=== PATIENT | female | born 1990 | race Caucasian/White ===

== ENCOUNTER 2019-09-16 10:04 | Outpatient (CLI) | payer BC, SELFPAY ==
[2019-09-16 11:10] VITALS: BP 99/77; PULSE 88
--- NOTE | 2019-09-16 11:26 | PM.OBTRLD ---
OB - Triage/Final Diagnosis Visit Information Date of evaluation: 09/16/19 Reason for evaluation: threatened labor Evaluation Vital signs: Vital Signs - 24 hr 09/16/19 11:10 Pulse Rate 88 Blood Pressure [Left Arm] 99/77 L
== END 2019-09-16 11:17 | disposition home or self-care (01) ==
LOC: ANHOBOP 10:57 → ANHLDR 10:58
PROVIDERS: Visit Provider Obstetrics & Gynecology
DX: O20.0 Threatened abortion (principal); Z3A.00 Weeks of gestation of pregnancy not specified
CPT/HCPCS: 59025; 99199

== ENCOUNTER 2019-09-27 05:00 | Inpatient (IN) | payer BC, SELFPAY ==
[2019-09-27] VITALS (80 sets, daily range): BP systolic 87–133; BP diastolic 43–94; PULSE 66–111; RESP 18; TEMP 36.6–37.9; O2SAT 97–100; BMI 22.7
--- NOTE | 2019-09-27 06:15 | LDADM ---
This patient, Debbie Chakraborty, was admitted to Labor/Delivery/Recovery 105 on 09/27/19 at 05:00. Plans for labor, pain management and were discussed with patient. Patient/family oriented to hospital policies and general routines including ID bracelet, bed and alarms, visiting hours, pain management, procedures, bathroom and other care routines, personal items, smoking policy, room service/diet and guest tray routines, infant security routines, and visiting hours. Patient/Family are encouraged to report perceived risks to care and to ask questions if they do not understand what they are told or what they should do. See OBIX for further documentation.
[2019-09-27 06:28] LABS: Basophils Percent Auto 0.2 % (0.2-1.2); Eosinophils Absolute Auto 0.1 K/mm3 (0-0.3); Eosinophils Percent Auto 0.8 % (0-4.4); Hematocrit 36.2 % (37.0-47.0); Hemoglobin 11.8 g/dL (12.0-15.0); Immature Granulocyte Absolute 0.06 K/mm3 (0.00-0.031); Immature Granulocyte Percent A 0.6 % (0-0.5); Immature Platelet Fraction Pct 19.9 % (0.9-11.2); Lymphocytes Absolute Auto 1.14 K/mm3 (0.9-3.2); Lymphocytes Percent Auto 10.7 % (18.3-44.2); Mean Corpuscular HGB Conc 32.6 g/dl (32-36); Mean Corpuscular Hemoglobin 29.9 pg (26-34); Mean Corpuscular Volume 91.9 fl (80-100); Mean Platelet Volume 14.1 fl (7.4-10.4); Monocytes Absolute Auto 0.7 K/mm3 (0.1-0.6); Neutrophils Absolute Auto 8.6 K/mm3 (1.3-6.7); Neutrophils Percent Auto 80.7 % (45.5-73.1); Platelet Count Result 100 k/mm3 (150-375); Red Blood Count 3.94 M/mm3 (4.2-5.4); White Blood Count 10.6 K/mm3 (4.5-10.0)
--- NOTE | 2019-09-27 06:59 | P.HP_ITS ---
H&P: HPI History of Present Illness Chief complaint: iol Narrative: Debbie Chakraborty is a 29 year old female 3 para 1011 last menstrual period was 01/01/2019, EDC is 09/28/2019, presents at 38 weeks gestation for induction. She has elevated blood pressures. PIH labs were drawn. Review of Systems Review of Systems: All systems reviewed & are unremarkable except as noted in HPI and below PMFSH Family History Family History Father High cholesterol Mother H/O thyroidectomy MTHFR mutation Social History Social History Smoking status: Never smoker Substance use: never Spiritual care concerns: No Meds Home Medications and Allergies Home Medications Medication Instructions Recorded Confirmed Type PNV cmb#95-ferrous fumarate-FA 1 tablet PO DAILY 09/05/19 09/05/19 History [] lisdexamfetamine [Vyvanse] 60 mg PO QAM 09/05/19 09/05/19 History Allergies Allergy/AdvReac Type Severity Reaction Status Date / Time No Known Allergies Allergy Verified 09/05/19 12:38 Vital Signs Vital Signs - 24 hr 09/27/19 05:08 09/27/19 06:02 09/27/19 06:16 Pulse Rate 75 74 75 Blood Pressure 128/68 123/83 09/27/19 06:31 Pulse Rate 71 Blood Pressure 129/78 Exam Const: General: no acute distress Eyes: General: appearance normal, both eyes and all related structures Neck: Neck: supple and no JVD Thyroid: thyroid normal Resp: Effort & Inspection: normal respiratory effort Auscultation: clear to auscultation bilaterally Cardio: Rate: regular rate Rhythm: regular rhythm GI: Inspection: non-distended GI Palp: Yes Soft to palpation, No Tenderness to palpation present (GI) and No Guarding due to palpation present (GI) Auscultation: normal bowel sounds : General: Yes bladder normal to palpation External Female Exam: normal external appearance Speculum Exam - Vagina: normal vaginal discharge and No vaginal bleeding Speculum Exam - Cervix: nontender Bimanual exam- vagina & uterus: bladder normal to palpation and No Cervical tenderness present OB/external & speculum: No vaginal bleeding Skin: General skin exam: no rashes or lesions noted Extrem: General: normal to inspection and no edema Psych: Mental Status: mental status grossly normal Affect: normal affect H&P: Results Labs Labs: Short CBC 09/27/19 Range/Units 05:57 WBC 10.6 H (4.5-10.0) K/mm3 Hgb 11.8 L (12.0-15.0) g/dL Hct 36.2 L (37.0-47.0) % Plt Count 100 L (150-375) k/mm3 Assessment and Plan Additional Plan Impression: 39 and half week with elevated blood pressures Plan: Bilateral induction of labor, spontaneous vaginal delivery is expected, P IH labs were drawn
[2019-09-27] MEDS: LACTATED RINGERS 1,000 ML 125 ML IV CONT ×2 (07:00→09:05)
--- NOTE | 2019-09-27 08:55 | P.PNAN_ITS ---
Anes - Eval Pre Procedure Procedure: labor Epidural Date/Time: 09/27/19 09:32 Surgeon: Tato Preop Diagnosis: labor pain Pre Op Diagnosis: iol Patient Data Age: 29 Gender: F Height: 6 ft Weight: 76 kg Last Vital Signs Temp 36.6 C 09/27/19 08:57 Pulse 83 09/27/19 09:31 BP 87/73 L 09/27/19 09:31 Pulse Ox 100 09/27/19 09:31 Allergies Allergy/AdvReac Type Severity Reaction Status Date / Time No Known Allergies Allergy Verified 09/05/19 12:38 Home Medications Medication Instructions Recorded Confirmed Type PNV cmb#95-ferrous fumarate-FA 1 tablet PO DAILY 09/05/19 09/05/19 History [] lisdexamfetamine [Vyvanse] 60 mg PO QAM 09/05/19 09/05/19 History hydrocodone-acetaminophen [[place]] 1 tablet PO Q4H PRN #20 tablet 09/27/19 Rx Laboratory Tests 09/27/19 09/27/19 09/27/19 05:57 05:57 05:57 WBC 10.6 K/mm3 H K/mm3 (4.5-10.0) RBC 3.94 M/mm3 L M/mm3 (4.2-5.4) Hgb 11.8 g/dL L g/dL (12.0-15.0) Hct 36.2 % L % (37.0-47.0) MCV 91.9 fl fl (80-100) MCH 29.9 pg pg (26-34) MCHC 32.6 g/dl g/dl (32-36) RDW 13.0 % % (11.5-14.5) Plt Count 100 k/mm3 L k/mm3 (150-375) MPV 14.1 fl H fl (7.4-10.4) Immature Gran % (Auto) 0.6 % H % (0-0.5) Neut % (Auto) 80.7 % H % (45.5-73.1) Lymph % (Auto) 10.7 % L % (18.3-44.2) [place] % (Auto) 7.0 % % (2.6-8.5) Eos % (Auto) 0.8 % % (0-4.4) Baso % (Auto) 0.2 % % (0.2-1.2) Lymph # (Auto) 1.14 K/mm3 K/mm3 (0.9-3.2) [place] # (Auto) 0.7 K/mm3 H K/mm3 (0.1-0.6) Eos # (Auto) 0.1 K/mm3 K/mm3 (0-0.3) Baso # (Auto) 0.0 K/mm3 K/mm3 (0.0-0.1) Abs Immat Gran (auto) 0.06 K/mm3 H K/mm3 (0.00-0.031) Absolute Neuts (auto) 8.6 K/mm3 H K/mm3 (1.3-6.7) Absolute Nucleated RBC 0.0 K/mm3 K/mm3 (0.0-0.012) Nucleated RBC % 0.0 % % (0.0-0.2) % Immature Plt Fraction 19.9 % H % (0.9-11.2) RPR Pending Blood Type A Positive Antibody Screen Negative : gestational age (SERA 09/28/19) Patient hx anesthesia problems: none Family hx anesthesia problems: none [facility] Family History Family History Father High cholesterol Mother H/O thyroidectomy MTHFR mutation Social History Social History Smoking status: Never smoker Substance use: never Spiritual care concerns: No Exam Day of Procedure 09/27/19 09:32 Patient weight: normal Heart: regular rate and rhythm Lungs: clear to auscultation Airway: Mallampati scale class II Neurological: alert and orien
[2019-09-27 10:29] LABS: Rapid Plasma Reagin Non-Reactive (NonReactive)
--- NOTE | 2019-09-27 12:15 | PM.OBPRVD ---
OB - Delivery Note Procedure Delivery date: 09/27/19 Procedure: mil/ Intrapartal events: None Induction method: AROM Delivery augmentation: pitocin Delivery monitor: external FHT Route of delivery: Episiotomy description: None Laceration description: None Specimen: No Estimated blood loss (mL): 127 Disposition: floor Baby Date of : 09/27/19 Time of : 12:04 Weeks of gestation at delivery: 39 gender: Male Weight (pounds): 8 Weight (ounces): 5 presentation: vertex position: Left Occiput Transverse Placenta delivery description: Spontaneous cord vessel description: 3 Vessels and Clamped/Cut score one minute: 8 score five minutes: 9
[2019-09-27] MEDS: IBUPROFEN 600 MG TABLET PO ×2 (14:00→20:57)
--- NOTE | 2019-09-27 14:30 | PC.NURSE ---
Patient transferred to post room #277 per wheelchair from labor and delivery. Support person present. Oriented to unit, room, information board, rooming in, admission packet and security measures. Patient verbalizes understanding.
[2019-09-27] MEDS: LORATADINE 10 MG TABLET PO (15:39)
[2019-09-27] MEDS: DOCUSATE SODIUM 100 MG CAPSULE PO ×2 (15:39→18:52)
--- NOTE | 2019-09-27 16:15 | PC.NURSE ---
Consulted with patient, upon entering mother is attempting infant to breast. Mother reports attempting with first child, switching to bottle feeding within a few days. Reviewed infant feeding cues, frequencies, duration of feedings, feeding elimination flow sheet, and signs of adequate intake. Demonstrated stimulation techniques to wake for feeding. Assisted with infant to breast. Reviewed positioning/alignment in cross cradle, holding breast in U hold and guided asymmetrical latch on. Infant was able to latch correctly. nursed eagerly, with steady draws and frequent swallowing noted. Reviewed signs of a correct latch, effective nursing and suck swallow ratio. was able to maintain latch without discomfort to mother. Nipple care reviewed. Infant would draw back and slip to shallow latch while feeding. Demonstrated how to adjust latch more deeply while feeding. Advised to stimulate to keep infant nursing effectively for increased milk transfer. Instructed mother to call out for RN assistance if she is unable to latch for feeding or she has discomfort with nursing. Instructed feeding should be initiated three hours from start of last feeding or if feeding cues are noted before. Mother voiced understanding of information shared.
[2019-09-27] MEDS: WITCH HAZEL 40 PADS 1 PAD TOPICAL (18:52)
[2019-09-27] MEDS: BENZOCAINE 20% AER SPR (*SP) 56 GM CAN 1 SPRAY TOPICAL (18:52)
[2019-09-27] MEDS: ACETAMINOPHEN 325 MG TABLET 650 MG PO (18:53)
[2019-09-28 02:30] VITALS: TEMP 37.4
[2019-09-28] MEDS: ACETAMINOPHEN 325 MG TABLET 650 MG PO ×5 (02:31→21:16)
[2019-09-28 05:36] LABS: Hematocrit 34.4 % (37.0-47.0); Hemoglobin 11.1 g/dL (12.0-15.0)
--- NOTE | 2019-09-28 06:42 | P.PNOB_ITS ---
OB - PN: Subj Subjective Date/time seen: 09/28/19 06:42 Patient comments: no complaints and pain well controlled baby status: doing well and nursing well OB - PN: Obj Data Labs CBC & Chem 7: 09/28/19 04:36 Labs: Laboratory Results - last 24 hr 09/27/19 09/27/19 09/28/19 05:57 05:57 04:36 Hgb 11.1 L Hct 34.4 L RPR Non-reactive Blood Type A Positive Antibody Screen Negative OB - PN A/P Plan day: 1 Plan: routine care Comments: circ son today Time Spent With Patient Time: Total time spent is greater than 50% in coordination of care (as documented) at patient's floor/unit and/or counseling patient: Time with patient: less than 15 minutes Review of Systems Review of Systems: All systems reviewed & are unremarkable except as noted in HPI and below Exam Const: General: no acute distress Eyes: General: appearance normal, both eyes and all related structures Neck: Neck: supple and no JVD Thyroid: thyroid normal Resp: Effort & Inspection: normal respiratory effort Auscultation: clear to auscultation bilaterally Cardio: Rate: regular rate Rhythm: regular rhythm GI: Inspection: non-distended GI Palp: Yes Soft to palpation, No Tenderness to palpation present (GI) and No Guarding due to palpation present (GI) Auscultation: normal bowel sounds : General: Yes bladder normal to palpation External Female Exam: normal e xternal appearance Speculum Exam - Vagina: normal vaginal discharge and No vaginal bleeding Speculum Exam - Cervix: nontender Bimanual exam- vagina & uterus: bladder normal to palpation and No Cervical tenderness present OB/external & speculum: No vaginal bleeding Skin: General skin exam: no rashes or lesions noted Extrem: General: normal to inspection and no edema Psych: Mental Status: mental status grossly normal Affect: normal affect
--- NOTE | 2019-09-28 07:00 | PC.NURSE ---
PT introductions made and plan of care discussed per post , pain management, breast feeding, daily care activities. PT verbalized understanding of such care.
[2019-09-28 07:50] VITALS: BP 118/71; PULSE 92; RESP 18; TEMP 37.3; O2SAT 100
[2019-09-28] MEDS: DOCUSATE SODIUM 100 MG CAPSULE PO ×2 (08:01→15:54)
[2019-09-28] MEDS: MULTIVIT/MIN/PREN/FOL AC/IRON TABLET 1 TAB PO (08:02)
[2019-09-28] MEDS: IBUPROFEN 600 MG TABLET PO ×3 (08:02→21:20)
--- NOTE | 2019-09-28 08:08 | WPDANLDPN2 ---
Anes-Prog Note L&D Date/Time: 09/28/19 08:08 Comfortable throughout: labor and delivery Neuraxial method: epidural Epidural/Spinal procedure site: clean & non-tender Neuro status: Neuro function grossly intact. Cardiovascular status: normal Respiratory status: normal Airway patency: baseline Mental status: baseline Post-Op hydration status: normal Vital Signs: Last Vital Signs Temp 99.4 F 09/28/19 02:30 Pulse 100 09/27/19 18:55 Resp 18 09/27/19 18:55 BP 111/57 L 09/27/19 18:55 Pulse Ox 100 09/27/19 14:40 Patient feedback: Patient satisfied with anesthetic care.
[2019-09-28 09:26] VITALS: BP 112/67; PULSE 78; RESP 18; TEMP 36.3; O2SAT 98
--- NOTE | 2019-09-28 11:28 | PC.NURSE ---
PT informed of positive influenza A swab and was informed and educated on Droplet precautions. Pt verbalized understanding.
[2019-09-28 11:57] LABS: Influenza Control Positive
--- NOTE | 2019-09-28 13:30 | PC.NURSE ---
PT requests to talk to Adelita modeling agent
--- NOTE | 2019-09-28 15:35 | PC.NURSE ---
Consult with pt., mother reports she is able to latch deeply without assistance. eagerly latches nursing with long draws and without discomfort. Mother has supplemented due to not acting satisfied after some feedings. Mother is also sleepy and feels she needs to rest well between feedings. Suggested pace feedings.
[2019-09-28] MEDS: GUAIFENESIN/DEXTROMETHORPHAN 10 ML UDC PO (15:58)
[2019-09-28 19:00] VITALS: BP 104/61; PULSE 88; RESP 16; TEMP 37.1; O2SAT 98
[2019-09-29 03:30] VITALS: TEMP 36.3
[2019-09-29] MEDS: IBUPROFEN 600 MG TABLET PO ×2 (03:30→10:20)
--- NOTE | 2019-09-29 06:50 | P.DS_ITS ---
DS: Diagnosis Admitting Diagnosis Admitting Diagnosis: term DS: Summary Time Spent with Patient Time attestation: Total time spent providing and/or coordinating discharge services: Exam Const: General: no acute distress Eyes: General: appearance normal, both eyes and all related structures Neck: Neck: supple and no JVD Thyroid: thyroid normal Resp: Effort & Inspection: normal respiratory effort Auscultation: clear to auscultation bilaterally Cardio: Rate: regular rate Rhythm: regular rhythm GI: Inspection: non-distended GI Palp: Yes Soft to palpation, No Tenderness to palpation present (GI) and No Guarding due to palpation present (GI) A uscultation: normal bowel sounds : General: Yes bladder normal to palpation External Female Exam: normal external appearance Speculum Exam - Vagina: normal vaginal discharge and No vaginal bleeding Speculum Exam - Cervix: nontender Bimanual exam- vagina & uterus: bladder normal to palpation and No Cervical tenderness present OB/external & speculum: No vaginal bleeding Skin: General skin exam: no rashes or lesions noted Extrem: General: normal to inspection and no edema Psych: Mental Status: mental status grossly normal Affect: normal affect DS: Data Data Completed and Pending Labs on day of discharge: Labs from last 24 hours 09/28/19 11:28 Influenza Types A,B Ag Positive for inf a Discharge Plan Discharge Attending physician on discharge: Matt Por Discharging Clinician: Matt Pro Patient Disposition: Home, Self-Care Activity: may shower, no straining, may drive after 2 weeks and pelvic rest Diet: heart healthy Wound Care Instructions: follow printed instructions Patient Instructions: Antibiotic Form Stand Alone Forms: General Discharge Information Follow-up/Referrals: Matt Pro MD [Physician] - Discharge Medications: New hydrocodone-acetaminophen [[place]] 5-325 mg tablet 1 tablet PO Q4H PRN (Reason: pain) Qty: 20 RF: 0 Continued PNV cmb#95-ferrous fumarate-FA [] 28 mg iron- 800 mcg Tablet 1 tablet PO DAILY RF: 0 Vyvanse 60 mg Capsule 60 mg PO QAM RF: 0 Date of admission: 09/27/19 05:00 Primary Care Provider: UNKNOWN,DOCTOR Admitting Provider: Matt Pro Attending physician on admission: Matt Pro
--- NOTE | 2019-09-29 06:51 | PM.OBPNVD ---
OB - PN: Subj Subjective Date/time seen: 09/29/19 06:51 Patient comments: no complaints and pain well controlled baby status: doing well and nursing well OB - PN: Obj Data Labs CBC & Chem 7: 09/28/19 04:36 Labs: Laboratory Results - last 24 hr 09/28/19 11:28 Influenza Types A,B Ag Positive for inf a OB - PN A/P Plan day: 2 Plan: routine care, discharge home and follow up 6 weeks Time Spent With Patient Time: Total time spent is greater than 50% in coordination of care (as documented) at patient's floor/unit and/or counseling patient: Time with patient: less than 15 minutes Review of Systems Review of Systems: All systems reviewed & are unremarkable except as noted in HPI and below Exam Const: General: no acute distress Eyes: General: appearance normal, both eyes and all related structures Neck: Neck: supple and no JVD Thyroid: thyroid normal Resp: Effort & Inspection: normal respiratory effort Auscultation: clear to auscultation bilaterally Cardio: Rate: regular rate Rhythm: regular rhythm GI: Inspection: non-distended GI Palp: Yes Soft to palpation, No Tenderness to palpation present (GI) and No Guarding due to palpation present (GI) Auscultation: normal bowel sounds : General: Yes bladder normal to palpation External Female Exam: normal external appearance Speculum Exam - Vagina: normal vaginal discharge and No vaginal bleeding Speculum Exam - Cervix: nontender Bimanual exam- vagina & uterus: bladder normal to palpation and No Cervical tenderness present OB/external & speculum: No vaginal bleeding Skin: General skin exam: no rashes or lesions noted Extrem: General: normal to inspection and no edema Psych: Mental Status: mental status grossly normal Affect: normal affect
--- NOTE | 2019-09-29 08:26 | PC.NURSE ---
PT introductions made and plan of care discussed per post , pain management, breast feeding, daily care activities, positive for influenza A, droplet isolation, pending discharge to home. PT verbalized understanding of such care.
[2019-09-29] MEDS: ACETAMINOPHEN 325 MG TABLET 650 MG PO ×2 (08:29→13:00)
[2019-09-29] MEDS: MULTIVIT/MIN/PREN/FOL AC/IRON TABLET 1 TAB PO (08:29)
[2019-09-29] MEDS: DOCUSATE SODIUM 100 MG CAPSULE PO (08:30)
[2019-09-29 09:49] VITALS: BP 112/67; PULSE 78; RESP 18; TEMP 36.3; O2SAT 98
--- NOTE | 2019-09-29 12:15 | PC.NURSE ---
Mother is able to independently latch infant with appropriate positioning/alignment. She denies any nipple discomfort, is feeding as required and waking to feed if needed. has had several effective feedings in the past 24 hours, and is currently meeting outcomes for weight, output, jaundice and feeding frequencies. Mother chooses to supplement at times. Mother states she feels confident to continue effective at home. Reviewed transition to breast milk, signs of adequate intake, and engorgement/relief. Instructed to call ICP if intake/output less than required. Reviewed regular medications mother is taking. Information provided per Vickie. Reviewed community resources on the [facility] website and in the Mom/Baby guide. Information on outpatient services provided. Mother has no further questions at this time.
--- NOTE | 2019-09-29 13:00 | PC.NURSE ---
PT received discharge instructions per protocol and verbalized understanding of such care.
--- NOTE | 2019-09-29 13:30 | PC.NURSE ---
PT discharged to home ambulatory accompanied by spouse and to waiting car. Follow up appts confirmed
--- NOTE | 2019-10-17 12:29 | PM.IMHP ---
H&P: HPI History of Present Illness Chief complaint: iol Narrative: Debbie Chakraborty is a 29 year old female Who had a spontaneous vaginal delivery on 09/27/2019, presents for suction dilatation curettage secondary to retained products. She is seen on the and ultrasound showed retained products. She continues to bleed. Risks and benefits of D and C reviewed Review of Systems Review of Systems: All systems reviewed & are unremarkable except as noted in HPI and below PMFSH Past Medical History Medical History Normal vaginal delivery Surgical History Surgical History No pertinent past surgical history Family History Family History Father High cholesterol Mother H/O thyroidectomy MTHFR mutation Social History Social History Smoking status: Never smoker Substance use: never Spiritual care concerns: No Meds Home Medications and Allergies Home Medications Medication Instructions Recorded Confirmed Type PNV cmb#95-ferrous fumarate-FA 1 tablet PO DAILY 09/05/19 09/05/19 History [] Vyvanse 60 mg PO QAM 09/05/19 09/05/19 History hydrocodone-acetaminophen [[place]] 1 tablet PO Q4H PRN #20 tablet 09/27/19 Rx Allergies Allergy/AdvReac Type Severity Reaction Status Date / Time No Known Allergies Allergy Verified 10/17/19 10:42 Exam Const: General: no acute distress Eyes: General: appearance normal, both eyes and all related structures Neck: Neck: supple and no JVD Thyroid: thyroid normal Resp: Effort & Inspection: normal respiratory effort Auscultation: clear to auscultation bilaterally Cardio: Rate: regular rate Rhythm: regular rhythm GI: Inspection: non-distended GI Palp: Yes Soft to palpation, No Tenderness to palpation present (GI) and No Guarding due to palpation present (GI) Auscultation: normal bowel sounds : General: Yes other (Cervix open. Blood seen from the cervix. Uterus is state) Skin: General skin exam: no rashes or lesions noted Extrem: General: normal to inspection and no edema Psych: Mental Status: mental status grossly normal Affect: normal affect Assessment and Plan Additional Plan Impression: bleeding Plan: Suction dilatation curettage
== END 2019-09-29 13:30 | disposition home or self-care (01) | DRG 807 ==
LOC: ANHLDR 07:03 → ANHOB2 14:45
PROVIDERS: Admitting Provider Obstetrics & Gynecology; Visit Provider Obstetrics & Gynecology
DX: O13.4 Gestational [pregnancy-induced] hypertension without significant proteinuria, complicating childbirth (principal); Z37.0 Single live birth; Z3A.39 39 weeks gestation of pregnancy; O69.81X0 Labor and delivery complicated by cord around neck, without compression, not applicable or unspecified
CPT/HCPCS: 36415; 85014; 85018; 85025; 85055; 86592; 86850; 86900; 86901; 87804; A9270; J2590; J2795; J7120

== ENCOUNTER 2019-10-15 08:13 | Emergency (ER) | payer BC, SELFPAY ==
--- NOTE | ~2019-10-15 | US_ITS ---
EXAMINATION: US pelvic complete w TV DATE: 10/15/2019 09:57 INDICATION: bleeding TECHNIQUE: Multiple transabdominal and endovaginal sonographic images of the pelvis were obtained. COMPARISON: None. FINDINGS: The uterus measures 8.5 x 6.2 x 8.8 cm. The endometrial complex measures 17 mm in thickness with het erogeneous material within the endometrial canal which is without internal flow on color Doppler. The right ovary measures 3.4 x 1.1 x 1.2 cm. The left ovary measures 2.0 x 1.5 x 1.5 cm. There is normal vascular flow in the ovaries. There is no free fluid in the pelvis. IMPRESSION: 1. Heterogeneous but avascular appearing material within the thickened endometrial canal with differe ntial including either clot or retained products of conception. Reviewed, dictated and finalized at location A. IMPRESSION: 1. Heterogeneous but avascular appearing material within the thickened endometr ial canal with differential including either clot or retained products of olesya ption.
[2019-10-15 08:23] VITALS: BP 116/79; PULSE 85; RESP 18; TEMP 37; O2SAT 100
--- NOTE | 2019-10-15 08:25 | ED.ABDPAIN ---
HPI - Abdominal Pain General Chief Complaint: Vaginal Bleeding Stated Complaint: 2 wks post bleeding Time Seen by Provider: 10/15/19 08:18 Source: patient Mode of arrival: ambulatory Limitations: no limitations History of Present Illness HPI narrative: A 29 y/o female has presented to the ED with c/o 2 weeks post bleeding. Pt recently had a vaginal delivery of a son on the 26 of September. Pt notes that there were no complications or significant bleeding after delivery and states that she has been feeling fine; however, 3 days ago she noticed a large amount of vaginal bleeding began to occur. She states that she was out walking beforehand, so she initially accredited the bleeding to an increase in blood flow from exercise. This morning when the pt woke up she noticed that she had bled through a pad that she was wearing throughout the night. While pt was showering she states that multiple blood clots would fall into the shower. Pt notes that she is needing to change pads once an hour due to excessive bleeding. Pt states that she is tired, and slightly lightheaded but states she it is not concerning. Pt denies pain, cramping, fever, palpitations, weakness, dysuria, or back pain. Pt notes that she is both breast feeding and bottle feeding her child. Pt tried contacting her OBGYN Dr. Douglas Madrigal this morning, but she did not get a response so she decided to come to the ED for further evaluation. MD elicited complaint: other (2 weeks post bleeding) Pertinent past history: other (vaginal delivery on September 26) Onset (ago): day(s) (3) Context: confirms other (vaginal delivery on September 26) Associated symptoms: other (fatigue, lightheaded) Related Data Home Medications Medication Instructions Recorded Confirmed PNV cmb#95-ferrous fumarate-FA 1 tablet PO DAILY 09/05/19 09/05/19 [] Vyvanse 60 mg PO QAM 09/05/19 09/05/19 Allergies Allergy/AdvReac Type Severity Reaction Status Date / Time No Known Allergies Allergy Verified 10/15/19 08:38 Review of Systems Review of Systems: Narrative: CONSTITUTIONAL: Reports: fatigue; Denies fever, pain CARDIOVASCULAR: Denies palpitations. GI: Denies: ABD cramping GENITOURINARY: Denies dysuria. MUSCULOSKELETAL: Denies back pain NEUROLOGIC: Denies weakness. Reports lightheadedness All systems reviewed & are unremarkable except as noted in HPI and below PMFSH Past Medical History Medical History Normal vaginal delivery Surgical History Surgical History No pertinent past surgical history Family History Family History Father High cholesterol Mother H/O thyroidectomy MTHFR mutation Social History Social History Smoking status: Never smoker Substance use: never Spiritual care concerns: No Comments No PCP on file. OBGYN: Dr. Douglas Madrigal Exam Narrative: Exam Narrative: GENERAL: Awake, alert, conversant HEAD: Normocephalic, atraumatic. ENT: Nares patent. Mucous membranes moist. NECK: Full range of motion CHEST: No respiratory distress, speaking in full sentences, no tachypnea HEART: Regular rate ABDOMEN: Non distended, non tender, fundus not palpable. No flank tenderness. : Labia majora and minora normal without lesions. Vagina with + blood. Clot present at os, no brisk bleeding. Os dilated to 2 cm. No cervical motion tenderness. No adnexal tenderness or fullness bilaterally. Discharge present. EXTREMITIES: Normal range of motion. No edema. SKIN: Warm, dry, no rash. NEURO: No focal deficits. Alert and oriented x3. Course Course Emergency Course: Patient presented for evaluation of vaginal bleeding. At the time of initial assessment, vital signs are stable, patient is well-appearing. No abdominal pain. Pelvic exam shows clot present at the cervical offic
[2019-10-15 08:42] LABS: Basophils Percent Auto 0.6 % (0.2-1.2); Eosinophils Absolute Auto 0.1 K/mm3 (0-0.3); Eosinophils Percent Auto 2.8 % (0-4.4); Hemoglobin 13.9 g/dL (12.0-15.0); Immature Granulocyte Absolute 0.01 K/mm3 (0.00-0.031); Immature Granulocyte Percent A 0.2 % (0-0.5); Lymphocytes Absolute Auto 1.13 K/mm3 (0.9-3.2); Lymphocytes Percent Auto 24.5 % (18.3-44.2); Mean Corpuscular HGB Conc 31.6 g/dl (32-36); Mean Corpuscular Hemoglobin 29.6 pg (26-34); Mean Corpuscular Volume 93.6 fl (80-100); Mean Platelet Volume 11.5 fl (7.4-10.4); Monocytes Absolute Auto 0.4 K/mm3 (0.1-0.6); Monocytes Percent Auto 9.3 % (2.6-8.5); Neutrophils Absolute Auto 2.9 K/mm3 (1.3-6.7); Neutrophils Percent Auto 62.6 % (45.5-73.1); Platelet Count Result 212 k/mm3 (150-375); Red Cell Distribution Width 12.5 % (11.5-14.5); White Blood Count 4.6 K/mm3 (4.5-10.0)
[2019-10-15 08:45] VITALS: BP 111/82; BP 117/81; BP 119/70; PULSE 105; PULSE 70; PULSE 89
[2019-10-15] MEDS: SODIUM CHLORIDE 0.9% IV 1,000 ML 999 ML IV CONT (08:46)
[2019-10-15 08:52] LABS: INR 0.9; Prothrombin Time 12.3 Seconds (11.1-14.7)
[2019-10-15 08:53] LABS: Partial Thromboplastin Time 35.7 SECONDS (22.3-36.8)
[2019-10-15 08:56] LABS: Alanine Aminotransferase 18 U/L (4-35); Albumin Level 4.3 g/dL (3.5-5.1); Alkaline Phosphatase 93 U/L (38-126); Aspartate Amino Transferase 24 U/L (14-36); Bilirubin,Total 0.7 mg/dL (0.2-1.3); Blood Urea Nitrogen 19 mg/dL (7-17); Calcium 9.2 mg/dL (8.4-10.2); Carbon Dioxide 30 mmol/L (22-30); Chloride 103 mmol/L (98-107); Estimated CRCL calculation 117 ml/min; Estimated Glomerular Filt Rate > 60; Glucose 76 mg/dL (65-105); Sodium 139 mmol/L (137-145)
[2019-10-15 09:34] VITALS: BP 151/69; PULSE 75
[2019-10-15 10:17] VITALS: BP 118/67; PULSE 72; RESP 16; TEMP 36.6; O2SAT 100
== END 2019-10-15 10:47 | disposition home or self-care (01) ==
PROVIDERS: Emergency Provider Emergency Medicine; PCP Obstetrics & Gynecology
DX: O72.2 Delayed and secondary postpartum hemorrhage (principal)
CPT/HCPCS: 36415; 76830; 76856; 80053; 85025; 85610; 85730; 86900; 86901; 96360; 99284; J7030

== ENCOUNTER 2019-10-17 13:00 | Day surgery (SDC) | payer BC, SELFPAY ==
[2019-10-17 10:42] VITALS: BMI 26.9
[2019-10-17 13:29] VITALS: BP 117/65; PULSE 66; RESP 18; TEMP 36.7; O2SAT 100
[2019-10-17] MEDS: LACTATED RINGERS 1,000 ML 30 ML IV CONT ×2 (13:45→13:50)
--- NOTE | 2019-10-17 13:56 | P.PNAN_ITS ---
Anes - Initial Pre Proc Eval Procedure: Operation Date: 10/17/19 15:00 Proposed Procedures p Suction Dilatation and Curettage - Matt Pro MD Date/Time: 10/17/19 13:56 Surgeon: Matt Pro MD Pre Op Diagnosis: retained products Patient Data Age: 29 Gender: F Height: 6 ft Weight: 89.9 kg Last Vital Signs Temp 36.7 C 10/17/19 13:29 Pulse 66 10/17/19 13:29 Resp 18 10/17/19 13:29 BP 117/65 10/17/19 13:29 Pulse Ox 100 10/17/19 13:29 Allergies Allergy/AdvReac Type Severity Reaction Status Date / Time No Known Allergies Allergy Verified 10/17/19 13:45 Home Medications Medication Instructions Recorded Confirmed Type PNV cmb#95-ferrous fumarate-FA 1 tablet PO DAILY 09/05/19 10/17/19 History [] Vyvanse 60 mg PO QAM 09/05/19 10/17/19 History hydrocodone-acetaminophen [[place]] 1 tablet PO Q4H PRN #20 tablet 09/27/19 10/17/19 Rx Patient hx anesthesia problems: none Family hx anesthesia problems: none PMFSH Past Medical History Medical History Normal vaginal delivery Surgical History Surgical History No pertinent past surgical history Family History Family History Father High cholesterol Mother H/O thyroidectomy MTHFR mutation Social History Social History Smoking status: Never smoker Substance use: never Spiritual care concerns: No Anes - Eval Final PreProcedure Day of Procedure 10/17/19 13:56 Patient weight: normal Heart: regular rate and rhythm Lungs: clear to auscultation Airway: Mallampati scale class 1 Neurological: alert and oriented Last oral intake: >/= 8 hours ASA classification: I Emergent: no Anesthetic plan: proceed Anesthesia type and monitoring: general GIVS and standard monitoring Informed Consent: The patient's anesthetic plan and its attendant risks and benefits were discussed with the patient/family/POA. Questions were solicited and answers provided to the satisfaction of the patient/family/POA.
[2019-10-17] MEDS: ONDANSETRON INJ 4 MG/2 ML VIAL IV PUSH ×2 (14:07→14:08)
--- NOTE | 2019-10-17 14:45 | PM.PROC ---
Procedure Note - Detailed Date of procedure: 10/17/19 Pre-op diagnosis: retained products Surgeon: Matt Pro MD Postop diagnosis: Retained products Anesthesia: IV sedation and local EBL: 50cc Findings: Tissue consistent with retained placenta Complications: None Description of procedure: The patient is prepped and draped in the normal sterile fashion placed in the supine position. Under excellent IV sedation weighted speculum placed. Posterior fornix of vagina. Anterior lip of the cervix grasped with single-tooth tenaculum and 2.5cc 1% xylocaine anesthesia placed at 2, 4, 6, 8 of the cervix. Uterus sounded to 10cm. Serial dilatation fragmented os performed. This was followed by passage of a 10. Suction curette removing a moderate amount of tissue. When a good grating sound was heard. No further tissue could be removed. All sponge, needle, instrument counts were correct. Blood loss was estimated at50cc. There were no immediate complications
[2019-10-17 14:50] VITALS: BP 108/61; PULSE 64; RESP 16; TEMP 36.4; O2SAT 100
[2019-10-17 15:06] VITALS: BP 106/60; PULSE 53; RESP 12; O2SAT 100
[2019-10-17 15:37] VITALS: BP 106/70; PULSE 73; RESP 14
== END 2019-10-17 16:05 | disposition home or self-care (01) ==
PROVIDERS: PCP Obstetrics & Gynecology; Visit Provider Obstetrics & Gynecology
PROC: (CPT 59160; principal; 2019-10-17 15:00)
DX: O72.2 Delayed and secondary postpartum hemorrhage (principal)
CPT/HCPCS: 59160; 88305; A9270; J2001; J2250; J2405; J2704; J7120

== ENCOUNTER → 2020-05-17 09:21 | Outpatient (CLI) | payer BC, SELFPAY ==
--- NOTE | ~2020-05-17 | US_ITS ---
EXAMINATION: US breast LT limited HISTORY: Palpable lumps in the upper outer quadrant and lower left breast TECHNIQUE: Limited left breast ultrasound was performed. FINDINGS: There is no evidence of focal abnormal cystic or solid mass in the vicinity of the reported palpable abnormalities of concern. IMPRESSION: No specific sonographic correlate is identified for the reported palpable abnormalities of concern. F urther evaluation at this time should be based on clinical assessment. Continued follow-up physical e xamination is recommended. BI-RADS Category 1: Negative Reviewed, dictated and finalized at location [facility]. IMPRESSION: No specific sonographic correlate is identified for the reported palpable abnor malities of concern. Further evaluation at this time should be based on clinica l assessment. Continued follow-up physical examination is recommended. BI-RADS Category 1: Negative
== END ==
PROVIDERS: Visit Provider Obstetrics & Gynecology
DX: N63.20 Unspecified lump in the left breast, unspecified quadrant (principal)
CPT/HCPCS: 76642

== ENCOUNTER 2020-09-04 08:23 | Emergency (ER) | payer BC, SELFPAY ==
--- NOTE | ~2020-09-04 | US_ITS ---
US pelvic complete w TV DATE: 09/04/2020 09:55 INDICATION: Pelvic pain since IUD placement in September 2019, increasing over the past 24 hours TECHNIQUE: Real-time imaging via transabdominal and transvaginal approaches COMPARISON: 10/15/2019 pelvic ultrasound FINDINGS: The uterus measures approximately 7.3 cm height, 4 cm AP dimension. An IUD is noted within the central endometrial canal. The right ovary measures 3.4 x 3.4 x 2.4 cm. The left ovary measures 3.2 x 2.4 x 2.5 cm. There are bi lateral ovarian follicles. There is blood flow to both ovaries. There is a small free fluid collection in the cul de sac. IMPRESSION: IUD within uterus Small free fluid collection in cul de sac Reviewed, dictated and finalized at [facility]. Reviewed, dictated and finalized at location [facility]. TOLOGIC LINGUIST
[2020-09-04 08:39] VITALS: BP 126/78; PULSE 98; RESP 17; TEMP 37.1; O2SAT 100
--- NOTE | 2020-09-04 08:47 | ED.ABDPAIN ---
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 She reports intermittent pelvic cramping for 1 month. She also reports abnormal vaginal discharge since February. Her discharge is yellow and it has an odor. She states she was prescribed vaginal cream in February but she has followed with her drug abuse social worker, Dr. Douglas Madrigal, since. She reports over the past 2 days worsening pelvic pain with lower back pain. She denies urinary complaints or fever. She reports nausea , body aches. She took tylenol prior to coming today. Pain is 7/10. MD elicited complaint: abdominal pain Related Data Home Medications Medication Instructions Recorded Confirmed lisdexamfetamine [Vyvanse] 10 mg PO DAILY 09/04/20 Allergies Allergy/AdvReac Type Severity Reaction Status Date / Time No Known Allergies Allergy Verified 09/04/20 08:37 Review of Systems Review of Systems: All systems reviewed & are unremarkable except as noted in HPI and below PMFSH Past Medical History Medical History (Updated 09/04/20 @ 10:23 by Jennie Rios MD) Endometriosis Surgical History Surgical History (Updated 09/04/20 @ 08:50 by Jennie Rios MD) H/O laparoscopy Social History Social History (Updated 09/04/20 @ 08:50 by Jennie Rios MD) Smoking status: Never smoker Gender identity (if verbalized by the patient): Female Exam Narrative: Exam Narrative: GENERAL: Well-appearing, well-nourished, and in no acute distress. HEAD: Normocephalic, atraumatic EYES: PERRLA and EOMI, conjunctiva clear without discharge THROAT:Mucous membranes moist, Oropharynx normal without erythema, exudate, peritonsillar swelling or fluctuance NECK: Supple, without lymphadenopathy or mass RESPIRATORY: No respiratory distress, Airway patent, Respirations non-labored, Clear to auscultation without rales, rhonchi or wheeze HEART: Regular rate and rhythm. No murmur heard. Normal peripheral pulses. ABDOMEN: Soft, suprapubic, nondistended, normal active bowel sounds. No masses. No rebound or guarding, No organomegaly. EXTREMITIES: No edema, normal strength with full range of motion. SKIN: Warm, dry, normal color without rash NEURO: Alert and oriented x3. CN 2-12 grossly intact. No focal deficits. PSYCH: Normal mood and affect. : Speculum Exam - Vagina: abnormal vaginal discharge (copious) Bimanual exam- vagina & uterus: cervical motion tenderness Other: IUD in place Back/Spine/Pelvis: Back: no CVA tenderness Course Reevaluation(s) Reevaluation #1: I discussed with patient that she will be treated for PID with antibiotics. She was given rocephin in ER. labs are unremarkable. She understands she will need to follow up with Dr. Douglas Madrigal Date: 09/04/20 Time: 10:22 Vital Signs Vital signs: Vital Signs Temperature 98.7 F 09/04/20 08:39 Pulse Rate 98 09/04/20 08:39 Respiratory Rate 17 09/04/20 08:39 Blood Pressure 126/78 09/04/20 08:39 Pulse Oximetry 100 09/04/20 08:39 Temperature 98.7 F 09/04/20 08:39 Pulse Rate 68 09/04/20 11:06 Respiratory Rate 16 09/04/20 11:06 Blood Pressure 118/75 09/04/20 11:06 Pulse Oximetry 100 09/04/20 11:06 MDM - Abdominal Pain Lab Data Attestation: I reviewed the patient's lab results. Result diagrams: 09/04/20 08:52 09/04/20 08:52 Labs: Lab Results 09/04/20 09/04/20 09/04/20 Range/Units 08:52 08:52 08:52 WBC 6.4 (4.5-10.0) K/mm3 RBC 4.41 (4.2-5.4) M/mm3 Hgb 13.5 (12.0-15.0) g/dL Hct 40.6 (37.0-47.0) % MCV 92.1 (80-100) fl MCH 30.6 (26-34) pg MCHC 33.3 (32-36) g/dl RDW 12.5 (11.5-14.5) % Plt Count 11
[2020-09-04] MEDS: KETOROLAC 30 MG/ML VIAL (*BKC) IV PUSH (08:58)
[2020-09-04] MEDS: ONDANSETRON HCL ODT 4 MG TABLET PO (08:58)
--- NOTE | 2020-09-04 09:00 | PC.NURSE ---
EDP Rios at bedside for pelvic exam
[2020-09-04 09:01] LABS: Basophils Percent Auto 0.2 % (0.2-1.2); Eosinophils Percent Auto 0.6 % (0-4.4); Hematocrit 40.6 % (37.0-47.0); Hemoglobin 13.5 g/dL (12.0-15.0); Immature Granulocyte Absolute 0.01 K/mm3 (0.00-0.031); Immature Granulocyte Percent A 0.2 % (0-0.5); Immature Platelet Fraction Pct 7.1 % (0.9-11.2); Lymphocytes Absolute Auto 0.88 K/mm3 (0.9-3.2); Lymphocytes Percent Auto 13.8 % (18.3-44.2); Mean Corpuscular HGB Conc 33.3 g/dl (32-36); Mean Corpuscular Hemoglobin 30.6 pg (26-34); Mean Corpuscular Volume 92.1 fl (80-100); Mean Platelet Volume 11.5 fl (7.4-10.4); Monocytes Absolute Auto 0.6 K/mm3 (0.1-0.6); Monocytes Percent Auto 8.9 % (2.6-8.5); Neutrophils Absolute Auto 4.9 K/mm3 (1.3-6.7); Neutrophils Percent Auto 76.3 % (45.5-73.1); Platelet Count Result 119 k/mm3 (150-375); Red Blood Count 4.41 M/mm3 (4.2-5.4); Red Cell Distribution Width 12.5 % (11.5-14.5); White Blood Count 6.4 K/mm3 (4.5-10.0)
[2020-09-04 09:04] LABS: Add Urine Microscopic? NO; Appearance Urine Clear (Clear); Bilirubin Urine Negative (Negative); Blood Urine Negative (Negative); Color Urine Straw (Yellow); Glucose Urine UA Negative (Negative); Ketones Urine Negative (Negative); Leukocyte Esterase Ur Negative LEU/UL (Negative); Nitrate Urine Negative (Negative); Protein Urine Negative (Negative); RBC Urine 0-2 /hpf (0-2); Squamous Epithelial Cell Urine Few /hpf (Few); Urobilinogen Urine Negative mg/dL (<2.0); WBC Urine 0-3 /hpf
[2020-09-04 09:06] LABS: Specific Grav Ur 1.004 (1.001-1.035)
[2020-09-04 09:17] LABS: Alanine Aminotransferase 18 U/L (4-35); Albumin Level 4.3 g/dL (3.5-5.1); Alkaline Phosphatase 40 U/L (38-126); Anion Gap 6 mmol/L (8-16); Aspartate Amino Transferase 22 U/L (14-36); Bilirubin,Total 0.9 mg/dL (0.2-1.3); Blood Urea Nitrogen 13 mg/dL (7-17); Calcium 9.2 mg/dL (8.4-10.2); Carbon Dioxide 28 mmol/L (22-30); Chloride 105 mmol/L (98-107); Estimated CRCL calculation 102 ml/min; Estimated Glomerular Filt Rate > 60; Glucose 104 mg/dL (65-105); Sodium 139 mmol/L (137-145)
--- NOTE | 2020-09-04 09:30 | PC.NURSE ---
CULTURES SENT TO LAB VIA [facility], PT TO ULTRASOUND, WILL MEDICATE PER PROVIDER ORDER UPON PT RETURN.
--- NOTE | 2020-09-04 09:48 | PC.NURSE ---
PT STILL IN ULTRASOUND
[2020-09-04 09:49] LABS: Potassium 3.8 mmol/L (3.4-5.0)
[2020-09-04] MEDS: cefTRIAXone 1 GM VIAL 0.5 GM IM (09:49)
[2020-09-04] MEDS: LIDOCAINE HCL 1% LOCAL INJ 20 ML VIAL (09:50)
[2020-09-04 09:54] VITALS: BP 117/75; PULSE 89; RESP 18; O2SAT 100
[2020-09-04 11:06] VITALS: BP 118/75; PULSE 68; RESP 16; O2SAT 100
== END 2020-09-04 11:07 | disposition home or self-care (01) ==
PROVIDERS: Emergency Provider General Practice
DX: N73.9 Female pelvic inflammatory disease, unspecified (principal); N80.9 Endometriosis, unspecified
CPT/HCPCS: 36415; 76830; 76856; 80053; 81003; 81025; 85025; 85055; 87070; 87491; 87591; 87808; 96372; 96374; 99284; A9270; J0696; J1885

== ENCOUNTER 2021-01-23 13:19 | Outpatient (CLI) | payer BC, SELFPAY | END 2021-01-23 13:20 | disposition home or self-care (01) | LOC: ANHSURGERY 13:24 | PROVIDERS: PCP Family Medicine; Visit Provider Obstetrics & Gynecology | DX: Z01.818 Encounter for other preprocedural examination (principal); N80.9 Endometriosis, unspecified | CPT/HCPCS: 36415; 86850; 86900; 86901 ==

== ENCOUNTER 2021-01-25 01:10 | Day surgery (SDC) | payer BC, SELFPAY ==
[2021-01-18 15:28] VITALS: BMI 22.8
--- NOTE | 2021-01-23 07:21 | PM.IMHP ---
H&P: HPI History of Present Illness Date/Time: 01/23/21 07:21 30 year 3 para 2 0 admitted for diagnostic laparoscopy. She complains of pelvic pain and dyspareunia for several months. Ultrasound showed complex right ovarian cyst. Risks and benefits were reviewed including but not exclusive of , aspiration, bleeding, transfusion, perforation injury to bowel, bladder, ureter, or other internal organs with need for laparotomy. She received the [employer]CO[employer] handout titled laparoscopy. She had all questions answered. She asked to proceed Chief Complaint: pelvic pain and right ovarian cyst Review of Systems Review of Systems: All systems reviewed & are unremarkable except as noted in HPI and below PMFSH Past Medical History Medical History ADD (attention deficit disorder) without hyperactivity Endometritis Normal vaginal delivery Retained placenta or membranes Surgical History Surgical History Hx of dilation and curettage No pertinent past surgical history Family History Family History Father High cholesterol Mother H/O thyroidectomy MTHFR mutation Social History Social History Social History: Years smoked: 5 Smoking status: Former smoker Tobacco type: cigarettes Second hand tobacco smoke exposure: No Additional smoking assessment comments: SMOKED OFF AND ON DURING HS AND COLLEGE ABOUT 2-3 CIGARETTES/DAY Alcohol intake: current Drinks per week: 1 Alcohol use details: WINE OR MIXED DRINK Substance use: current Substance use type: marijuana Last use: 01/11/2021 Gender identity (if verbalized by the patient): Female Spiritual care concerns: No Meds Home Medications and Allergies Home Medications Medication Instructions Recorded Confirmed Type PNV cmb#95-ferrous fumarate-FA 1 tablet PO DAILY 09/05/19 01/18/21 History [] lisdexamfetamine 70 mg capsule 70 mg PO DAILY #30 cap 01/14/21 01/18/21 Rx Allergies Allergy/AdvReac Type Severity Reaction Status Date / Time No Known Allergies Allergy Verified 01/18/21 15:19 Exam Const: General: no acute distress Eyes: General: appearance normal, both eyes and all related structures Neck: Neck: supple and no JVD Thyroid: thyroid normal Resp: Effort & Inspection: normal respiratory effort Auscultation: clear to auscultation bilaterally Cardio: Rate: regular rate Rhythm: regular rhythm GI: Inspection: non-distended GI Palp: Yes Soft to palpation, No Tenderness to palpation present (GI) and No Guarding due to palpation present (GI) Auscultation: normal bowel sounds : General: Yes bladder normal to palpation External Female Exam: normal external appearance Speculum Exam - Vagina: normal vaginal discharge and No vaginal bleeding Speculum Exam - Cervix: nontender Bimanual exam- vagina & uterus: bladder normal to palpation and No Cervical tenderness present OB/external & speculum: No vaginal bleeding Skin: General skin exam: no rashes or lesions noted Extrem: General: normal to inspection and no edema Psych: Mental Status: mental status grossly normal Affect: normal affect Assessment and Plan Additional Plan impression: Pelvic pain and complex right ovarian cyst Plan: Laparoscopy
[2021-01-25] VITALS (13 sets, daily range): BP systolic 111–124; BP diastolic 58–83; PULSE 64–91; RESP 12–20; TEMP 36.6; O2SAT 98–100
--- NOTE | 2021-01-25 05:47 | WPDHPUPDATE1 ---
History and Physical Update Update Date/Time: 01/25/21 05:47 History and Physical has been reviewed, including an updated exam of the patient. There are NO changes in the patient's condition. Risks, benefits, and alternatives have been discussed and questions answered. Patient agrees to proceed with procedure.
[2021-01-25] MEDS: ACETAMINOPHEN 500 MG TABLET 1000 MG PO (09:54)
--- NOTE | 2021-01-25 10:27 | WPDANESEPPF ---
Anes - Initial Pre Proc Eval Procedure: Operation Date: 01/25/21 11:15 Proposed Procedures p Diagnostic Laparoscopy - Matt Pro MD Date/Time: 01/25/21 10:27 Surgeon: Matt Pro MD Pre Op Diagnosis: pelvic pain, hx of endometriosis Patient Data Age: 30 Gender: F Height: 1.83 m Weight: 75.95 kg Last Vital Signs Temp 36.6 C 01/25/21 09:32 Pulse 91 01/25/21 09:32 Resp 16 01/25/21 09:32 BP 120/73 01/25/21 09:32 Pulse Ox 100 01/25/21 09:32 Allergies Allergy/AdvReac Type Severity Reaction Status Date / Time No Known Allergies Allergy Verified 01/25/21 09:48 Home Medications Medication Instructions Recorded Confirmed Type PNV cmb#95-ferrous fumarate-FA 1 tablet PO DAILY 09/05/19 01/25/21 History [] ondansetron HCl [Zofran] 4 mg PO Q6H PRN #10 tablet 09/04/20 01/25/21 Rx hydrocodone-acetaminophen 1 tablet PO Q4H PRN #30 tablet 01/25/21 Rx Patient hx anesthesia problems: none Family hx anesthesia problems: none PMFSH Past Medical History Medical History ADD (attention deficit disorder) without hyperactivity Endometriosis Endometritis Normal vaginal delivery Retained placenta or membranes Surgical History Surgical History H/O laparoscopy Hx of dilation and curettage No pertinent past surgical history Family History Family History Father High cholesterol Mother H/O thyroidectomy MTHFR mutation Social History Social History Social History: Years smoked: 5 Smoking status: Former smoker Tobacco type: cigarettes Second hand tobacco smoke exposure: No Additional smoking assessment comments: SMOKED OFF AND ON DURING HS AND COLLEGE ABOUT 2-3 CIGARETTES/DAY Alcohol intake: current Drinks per week: 1 Alcohol use details: WINE OR MIXED DRINK Substance use: current Substance use type: marijuana Last use: 01/11/2021 Living arrangements: with family Gender identity (if verbalized by the patient): Female Spiritual care concerns: No Anes - Eval Final PreProcedure Day of Procedure 01/25/21 10:27 Patient weight: normal Heart: regular rate and rhythm Lungs: clear to auscultation Airway: Mallampati scale class 1 Neurological: alert and oriented Last oral intake: >/= 8 hours ASA classification: II Emergent: no Anesthetic plan: proceed Anesthesia type and monitoring: general ETT and standard monitoring Informed Consent: The patient's anesthetic plan and its attendant risks and benefits were discussed with the patient/family/POA. Questions were solicited and answers provided to the satisfaction of the patient/family/POA.
[2021-01-25] MEDS: LACTATED RINGERS 1,000 ML 30 ML IV CONT ×2 (10:53→13:30)
[2021-01-25] MEDS: KETOROLAC 15 MG/ML VIAL (*BKC) IV PUSH ×2 (10:54→14:47)
[2021-01-25] MEDS: MIDAZOLAM HCL (*CRX) 2 MG/2 ML VIAL IV PUSH ×2 (11:04→13:17)
[2021-01-25] MEDS: SCOPOLAMINE 1.5 MG PATCH TRANSDERM (11:05)
--- NOTE | 2021-01-25 12:11 | W.PM.PROC2 ---
Procedure Note - Detailed Date of Procedure 01/25/21 Pre-op Diagnosis pelvic pain, hx of endometriosis Post-op Diagnosis other (Pelvic pain / endometriosis / right ovarian cyst) Procedure Performed laparoscopic destruction of right ovarian cyst and destruction of endometriosis Surgeon Matt Pro MD Anesthesia general Indications this is a 30-year-old multiparous patient with pelvic pain and a right ovarian cyst. She had a history of endometriosis Findings normal-appearing uterus left ovary and tube, benign right hemorrhagic cyst. Blistered endometriosis in the cul-de-sac. Normal-appearing appendix gallbladder and liver edge Description of Procedure patient was prepped draped in normal sterile fashion placed in the dorsal lithotomy position. Under excellent general endotracheal anesthesia weighted speculum placed in posterior fornix vagina. Anterior lip of the cervix grasped with a single-tooth tenaculum and the Arenas's cannula is inserted to the cervix. These were attached to be used related to her for uterine manipulation. The bladder was drained of clear urine. The weighted speculum was removed. The gloves were changed. An infraumbilical umbilical incision made in the Veress needle passed in the abdomen. The abdomen filled with CO2 gas [id number]. The Optiview was used to enter the abdomen and no injury seen. The patient placed in Trendelenburg and a suprapubic incision made. The 5mm trocar advanced under direct visualization assuring no injury. Lb 10cc of serosanguineous fluid was seen in the cul-de-sac and this was irrigated removed. The left ovary and tube appeared within normal limits as did the uterus. The appendix and liver and gallbladder all appeared within normal limits. There was a right hemorrhagic cyst which was opened in linear fashion and drained of bloody tissue. There was no evidence of solid tumor present. The areas of endometriosis was were point cauterized with at 35 w per 2nd with monopolar cautery. Irrigation then undertaken to clear. The lower site removed. The gas removed from the abdomen. The upper site removed. The incisions closed with 4 Monocryl and glue. The patient was awakened and went to recovery in satisfactory condition. All sponge, needle, instrument counts were correct. There were no immediate complications Estimated Blood Loss 5 Drains No Packing No Pathology none sent Complications No immediate complications Condition stable Disposition PACU
[2021-01-25] MEDS: fentaNYL CITRATE INJ (*CRX) 100 MCG/2 ML VIAL 25 MCG IV PUSH ×4 (12:51→14:28)
--- NOTE | 2021-01-25 14:40 | SUR.PHASEI ---
RN gave 2mg of Versed and patient had to be bagged because her O2 sats dropped in the 30s. Dr. Saxena aware and at the bedside.
--- NOTE | 2021-01-25 14:47 | SUR.PHASEI ---
Around 1325 patient's respiratory drive significantly decreased. She was arousable to whole time but RN gave some breaths via AmBu bag at this time and then applied 2L NC.
[2021-01-25] MEDS: ONDANSETRON INJ 4 MG/2 ML VIAL IV PUSH (15:11)
== END 2021-01-25 16:20 | disposition home or self-care (01) ==
PROVIDERS: PCP Family Medicine; Visit Provider Obstetrics & Gynecology
PROC: (CPT 49320; principal; 2021-01-25 11:15)
DX: R10.2 Pelvic and perineal pain (principal); N83.201 Unspecified ovarian cyst, right side; N80.3 Endometriosis of pelvic peritoneum; Z87.891 Personal history of nicotine dependence; F12.90 Cannabis use, unspecified, uncomplicated
CPT/HCPCS: 58662; A9270; J1100; J1885; J2250; J2405; J2704; J3010; J7120

== ENCOUNTER 2021-02-05 16:02 | Outpatient (CLI) | payer BC, SELFPAY ==
--- NOTE | ~2021-02-05 | XR_ITS ---
XR chest 2V DATE: 02/05/2021 16:38 INDICATION: Generalized hyperhidrosis TECHNIQUE: PA and lateral views COMPARISON: None FINDINGS: Normal heart size. No hilar or mediastinal enlargement. No pulmonary infiltrate or consolid ation, pleural effusion or pulmonary vascular congestion or pneumothorax. IMPRESSION: Negative Reviewed, dictated and finalized at location [facility]. IMPRESSION: Negative
[2021-02-05 16:29] LABS: Basophils Percent Auto 0.4 % (0.2-1.2); Eosinophils Percent Auto 0.4 % (0-4.4); Hematocrit 41.1 % (37.0-47.0); Hemoglobin 13.8 g/dL (12.0-15.0); Lymphocytes Absolute Auto 1.11 K/mm3 (0.9-3.2); Lymphocytes Percent Auto 21.3 % (18.3-44.2); Mean Corpuscular HGB Conc 33.6 g/dl (32-36); Mean Corpuscular Hemoglobin 31.2 pg (26-34); Mean Corpuscular Volume 92.8 fl (80-100); Mean Platelet Volume 11.7 fl (7.4-10.4); Monocytes Absolute Auto 0.4 K/mm3 (0.1-0.6); Monocytes Percent Auto 7.3 % (2.6-8.5); Neutrophils Absolute Auto 3.7 K/mm3 (1.3-6.7); Neutrophils Percent Auto 70.6 % (45.5-73.1); Platelet Count Result 164 k/mm3 (150-375); Red Blood Count 4.43 M/mm3 (4.2-5.4); Red Cell Distribution Width 12.3 % (11.5-14.5); White Blood Count 5.2 K/mm3 (4.5-10.0)
[2021-02-05 16:42] LABS: Alanine Aminotransferase 21 U/L (4-35); Albumin Level 4.7 g/dL (3.5-5.1); Alkaline Phosphatase 43 U/L (38-126); Anion Gap 10 mmol/L (8-16); Aspartate Amino Transferase 26 U/L (14-36); Bilirubin,Total 1.2 mg/dL (0.2-1.3); Blood Urea Nitrogen 11 mg/dL (7-17); CRP < 0.5 mg/dL (<1.0); Calcium 9.8 mg/dL (8.4-10.2); Carbon Dioxide 29 mmol/L (22-30); Chloride 100 mmol/L (98-107); Creatine Kinase 64 U/L (30-135); Estimated Glomerular Filt Rate > 60; Glucose 91 mg/dL (65-110); Potassium 3.6 mmol/L (3.4-5.0); Sodium 139 mmol/L (137-145)
[2021-02-05 17:41] LABS: Erythrocyte Sedimentation Rate 11 mm/hr (0-20)
[2021-02-08 12:57] LABS: ANA Cascade Screen Negative (Negative)
== END 2021-02-05 16:03 | disposition home or self-care (01) ==
PROVIDERS: PCP Family Medicine; Visit Provider Family Medicine
DX: R61 Generalized hyperhidrosis (principal); R06.02 Shortness of breath; G72.9 Myopathy, unspecified; M12.9 Arthropathy, unspecified; R53.81 Other malaise
CPT/HCPCS: 36415; 71046; 80053; 82550; 85025; 85652; 86038; 86140

== ENCOUNTER 2021-03-17 17:37 | Emergency (ER) | payer BC, SELFPAY ==
--- NOTE | ~2021-03-17 | US_ITS ---
US OB <=14 wk fetus w TV DATE: 03/17/2021 18:49 INDICATION: Pelvic pain. Evaluate for ectopic . TECHNIQUE: Real-time imaging via transabdominal and transvaginal approaches COMPARISON: None FINDINGS: An intrauterine gestational sac is identified. Suggestion sac is mildly irregular in shape. There is a yolk sac and pole. cardiac motion is noted. heart rate of 119 bpm. [place]-rump length averages 0.54 cm, consistent with estimated gestational age of 6 weeks 2 days +/- 4 days with SERA of 11/08/2021. Approximately 5.6 x 17 mm area of hypoechogenicity is adjacent to the gestational sac may indicate a subchorionic hematoma. Right ovary 3.8 x 2.2 x 3.0 cm. 2 cm right ovarian hypodense corpus luteum cyst is suggested. Left ov floresita 1.9 x 1.1 x 1.4 cm. IMPRESSION: Live don[place]ue intrauterine gestation; heart rate of 119 bpm There is mild irregularity of the gestational sac. Mild subchorionic hematoma. Reviewed, dictated and finalized at [facility]. Reviewed, dictated and finalized at location A.
[2021-03-17 17:38] VITALS: BP 113/69; PULSE 73; RESP 18; TEMP 36.9; O2SAT 99
[2021-03-17 18:03] LABS: Basophils Percent Auto 0.2 % (0.2-1.2); Eosinophils Percent Auto 0.5 % (0-4.4); Hematocrit 35.8 % (37.0-47.0); Hemoglobin 12.2 g/dL (12.0-15.0); Immature Granulocyte Absolute 0.02 K/mm3 (0.00-0.031); Immature Granulocyte Percent A 0.3 % (0-0.5); Immature Platelet Fraction Pct 7.3 % (0.9-11.2); Lymphocytes Absolute Auto 0.99 K/mm3 (0.9-3.2); Lymphocytes Percent Auto 16.7 % (18.3-44.2); Mean Corpuscular HGB Conc 34.1 g/dl (32-36); Mean Corpuscular Hemoglobin 31.3 pg (26-34); Mean Corpuscular Volume 91.8 fl (80-100); Mean Platelet Volume 11.3 fl (7.4-10.4); Monocytes Absolute Auto 0.5 K/mm3 (0.1-0.6); Monocytes Percent Auto 8.9 % (2.6-8.5); Neutrophils Absolute Auto 4.4 K/mm3 (1.3-6.7); Neutrophils Percent Auto 73.4 % (45.5-73.1); Platelet Count Result 138 k/mm3 (150-375); Red Cell Distribution Width 12.9 % (11.5-14.5); White Blood Count 5.9 K/mm3 (4.5-10.0)
[2021-03-17 18:21] LABS: Alanine Aminotransferase 19 U/L (4-35); Albumin Level 4.2 g/dL (3.5-5.1); Alkaline Phosphatase 33 U/L (38-126); Anion Gap 7 mmol/L (8-16); Aspartate Amino Transferase 23 U/L (14-36); Bilirubin,Total 1.1 mg/dL (0.2-1.3); Blood Urea Nitrogen 11 mg/dL (7-17); Calcium 9.1 mg/dL (8.4-10.2); Carbon Dioxide 25 mmol/L (22-30); Chloride 103 mmol/L (98-107); Estimated CRCL calculation 133 ml/min; Estimated Glomerular Filt Rate > 60; Glucose 89 mg/dL (65-110); Lipase 45 U/L (23-300); Potassium 3.4 mmol/L (3.4-5.0); Sodium 135 mmol/L (137-145)
[2021-03-17 18:26] LABS: Add Urine Microscopic? YES; Appearance Urine Clear (Clear); Bacteria Urine Trace /hpf; Bilirubin Urine Negative (Negative); Blood Urine Negative (Negative); Color Urine Yellow (Yellow); Glucose Urine UA Negative (Negative); Ketones Urine Negative (Negative); Leukocyte Esterase Ur 1+ LEU/UL (Negative); Mucus Urine Rare /lpf; Nitrate Urine Negative (Negative); Protein Urine Negative (Negative); Specific Grav Ur 1.008 (1.001-1.035); Squamous Epithelial Cell Urine Few /hpf (Few); Urobilinogen Urine Negative mg/dL (<2.0)
--- NOTE | 2021-03-17 19:07 | ED.ABDPAIN ---
HPI - Abdominal Pain General Chief Complaint: Abdominal Pain Stated Complaint: approx 7 wks , epigastric pain Time Seen by Provider: 03/17/21 18:50 Source: patient Mode of arrival: ambulatory Limitations: no limitations History of Present Illness HPI narrative: Patient is a 30-year-old female, at 7 weeks age of gestation, complaining of epigastric pain, burning, 5 out of 10, nonradiating, that started today. Patient also complaining of low back pain. 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 Patient denies any vaginal bleeding or discharge. Patient denies any urinary symptoms. Patient denies any fever or chills. Related Data Home Medications Medication Instructions Recorded Confirmed PNV cmb#95-ferrous fumarate-FA 1 tablet PO DAILY 09/05/19 02/18/21 [] Allergies Allergy/AdvReac Type Severity Reaction Status Date / Time No Known Allergies Allergy Verified 03/17/21 18:11 Review of Systems Review of Systems: All systems reviewed & are unremarkable except as noted in HPI and below Constitutional: Constitutional: Denies body ache(s), Denies chills, Denies excessive sweating, Denies fatigue, Denies fever(s), Denies headache(s), Denies lethargy, Denies malaise, Denies weakness and Denies weight loss Eyes: Eyes: Denies blurry vision, Denies change in vision and Denies loss of vision ENT: Denies dizziness, Denies ear discharge, Denies headache(s), Denies lip swelling, Denies epistaxis, Denies nasal congestion, Denies neck pain, Denies throat swelling and Denies tongue swelling Cardiovascular: Cardiovascular: Denies chest pain, Denies chest pain at rest, Denies chest pain with activity, Denies diaphoresis, Denies rapid heart rate, Denies edema, Denies irregular heart rhythm, Denies lightheadedness, Denies palpitations, Denies dyspnea and Denies dyspnea on exertion Respiratory: Respiratory: Denies chest congestion, Denies cough, Denies hemoptysis, Denies dyspnea and Denies dyspnea on exertion Gastrointestinal: Gastrointestinal: Denies melena, Denies hematochezia, Denies diarrhea, Denies nausea, Denies vomiting and Denies hematemesis Musculoskeletal: Musculoskeletal: Denies abnormal gait, Denies deformity, Denies joint swelling, Denies limited range of motion, Denies neck pain and Denies numbness Neurologic: Denies Abnormal speech present, Denies abnormal gait, Denies confusion, Denies dizziness, Denies headache(s), Denies focal weakness, Denies loss of vision, Denies numbness, Denies Other visual disturbances, Denies Sensory deficit (Neuro) and Denies weakness Psychiatric: Psychiatric: Denies confusion, Denies depression, Denies auditory hallucinations, Denies homicidal ideation and Denies suicidal ideation Endocrine: Endocrine: Denies cold intolerance, Denies excessive sweating, Denies fatigue, Denies heat intolerance and Denies palpitations Hematologic/Lymphatic: Hematologic/Lymphatic: Denies easy bleeding and Denies easy bruising Allergic/Immunologic: Allergic/Immunologic: Denies lip swelling, Denies throat swelling and Denies tongue swelling PMFSH Past Medical History Medical History ADD (attention deficit disorder) without hyperactivity Endometriosis Endometritis Normal vaginal delivery Retained placenta or membranes Surgical History Surgical History H/O laparoscopy Hx of dilation and curettage No pertinent past surgical history Family History Family History Father High cholesterol Mother H/O thyroidectomy MTHFR mutation Social History Social History Social History: Years smoked: 5 Smoking status: Never smoker Tobacco type: cigarettes Second hand tobacco smoke exposure: No Additional smoking assess
[2021-03-17 20:41] VITALS: BP 108/60; PULSE 71; RESP 16; O2SAT 98
== END 2021-03-17 20:46 | disposition home or self-care (01) ==
PROVIDERS: Emergency Provider Emergency Medicine; PCP Family Medicine
DX: O26.891 Other specified pregnancy related conditions, first trimester (principal); R10.13 Epigastric pain; O23.41 Unspecified infection of urinary tract in pregnancy, first trimester; O99.891 Other specified diseases and conditions complicating pregnancy; N80.9 Endometriosis, unspecified; Z87.891 Personal history of nicotine dependence; Z3A.01 Less than 8 weeks gestation of pregnancy
CPT/HCPCS: 36415; 76801; 76817; 80053; 81001; 83690; 84702; 85025; 85055; 85461; 99284

== ENCOUNTER 2021-05-09 09:46 | Outpatient (CLI) | payer BC, SELFPAY ==
--- NOTE | 2021-05-09 11:30 | NEURO_ITS ---
Impression: # Complains of weakness of lower extremities. # Normal nerve conduction study including motor and sensory nerves and F- waves. # Normal needle/EMG exam except mild neurogenic changes in left Quad. # Clinical correlation recommended; Higher involvement needs to ruled out. Nerve Conduction Studies Anti Sensory Summary Table Stim Site NR Peak (ms) P-T Amp (?V) Site1 Site2 Delta-P (ms) Dist (cm) Doc (m/s) Left Sup Fibular Anti Sensory (Ant Lat Mall) 14 cm 3.3 13.9 14 cm Ant Lat Mall 3.3 16.0 48 Right Sup Fibular Anti Sensory (Ant Lat Mall) 14 cm 3.1 17.7 14 cm Ant Lat Mall 3.1 16.0 52 Left Sural Anti Sensory (Lat Mall) Calf 3.8 8.8 Calf Lat Mall 3.8 16.0 42 Right Sural Anti Sensory (Lat Mall) Calf 3.3 5.7 Calf Lat Mall 3.3 16.0 48 Motor Summary Table Stim Site NR Onset (ms) O-P Amp (mV) Site1 Site2 Delta-0 (ms) Dist (cm) Doc (m/s) Left Peroneal Motor (Vastus Med) Ankle 5.8 0.8 Popit Ankle 9.0 43.0 48 Popit 14.8 2.4 Right Peroneal Motor (Vastus Med) Ankle 5.9 3.3 Popit Ankle 7.9 41.0 52 Popit 13.8 3.4 Left Tibial Motor (Abd Euceda Brev) Ankle 5.5 4.1 Knee Ankle 11.1 46.0 41 Knee 16.6 1.4 Right Tibial Motor (Abd Euceda Brev) Ankle 5.4 4.3 Knee Ankle 10.2 44.0 43 Knee 15.6 1.7 F Wave Studies NR F-Lat (ms) L-R F-Lat (ms) Left Peroneal (Mrkrs) (EDB) 56.25 0.48 Right Peroneal (Mrkrs) (EDB) 56.73 0.48 Left Tibial (Mrkrs) (Abd Hallucis) 58.02 0.59 Right Tibial (Mrkrs) (Abd Hallucis) 57.43 0.59 EMG Side Muscle Nerve Root Ins Act Fibs Amp Dur Recrt Comment Right AntTibialis Dp Br Fibular L4-5 Nml Nml Nml Nml Nml Right Gastroc Tibial S1-2 Nml Nml Nml Nml Nml Right Fibularis Long Sup Br Fibular L5-S1 Nml Nml Nml Nml Nml Right Flex Dig Long Tibial L5-S2 Nml Nml Nml Nml Nml Right Ext Dig Brev Dp Br Fibular L5, S1 Nml Nml Nml Nml Nml Left AntTibialis Dp Br Fibular L4-5 Nml Nml Nml Nml Nml Left Gastroc Tibial S1-2 Nml Nml Nml Nml Nml Left Fibularis Long Sup Br Fibular L5-S1 Nml Nml Nml Nml Nml Left Flex Dig Long Tibial L5-S2 Nml Nml Nml Nml Nml Left Ext Dig Brev Dp Br Fibular L5, S1 Nml Nml Nml Nml Nml Right QuadratusFem QuadFemoris L4-5, S1 Nml Nml Nml Nml Nml Left QuadratusFem QuadFemoris L4-5, S1 Nml Nml Incr >12ms Reduced MTDD
== END 2021-05-09 09:47 | disposition home or self-care (01) ==
LOC: ANHNEURO 09:47
PROVIDERS: PCP Family Medicine; Visit Provider Family Medicine
DX: M62.81 Muscle weakness (generalized) (principal)
CPT/HCPCS: 95886; 95910

== ENCOUNTER 2022-08-24 09:36 | Emergency (ER) | payer BC, SELFPAY ==
[2022-08-24 10:19] VITALS: BP 120/83; PULSE 90; RESP 16; TEMP 36.6; O2SAT 100
--- NOTE | 2022-08-24 11:21 | ED.URI ---
HPI - URI/Sore Throat General Chief Complaint: Upper Respiratory Infection Stated Complaint: sore throat Time Seen by Provider: 08/24/22 11:15 Source: patient, RN notes reviewed and old records reviewed Mode of arrival: ambulatory Limitations: no limitations History of Present Illness HPI Narrative: 32 year old female who presents to [facility] care with complaints of sore throat which started yesterday and would like to have strep test. Patient reports no fevers, cough or feelings of chest congestion. Patient reports that she has had some sinus congestion and drainage with sore throat since yesterday only. patient has not taken any OTC medications for her symptoms. MD elicited complaint: sore throat Onset (ago): day(s) (1) Pain scale (0-10): 4 Able to tolerate fluids by mouth: Yes Treatments prior to arrival: none Related Data Allergies Allergy/AdvReac Type Severity Reaction Status Date / Time No Known Allergies Allergy Verified 08/24/22 10:49 Review of Systems Review of Systems: CONSTITUTIONAL: Denies malaise, chills, sweats, or fever. EYES: Denies visual changes, redness, or discharge. ENT: Reports rhinorrhea, congestion, no sinus pain,no otalgia positive for sore throat. CARDIOVASCULAR: Denies chest pain, palpitations, or edema. RESPIRATORY: Reports no cough.?Denies dyspnea. GASTROINTESTINAL: Denies abdominal pain, nausea, vomiting, diarrhea SKIN: Denies rash or itching. MUSCULOSKELETAL: Denies myalgia. NEUROLOGIC: Denies headache. All systems reviewed & are unremarkable except as noted in HPI and below PMFSH Past Medical History Medical History ADD (attention deficit disorder) without hyperactivity Endometriosis Endometritis Normal vaginal delivery Retained placenta or membranes Surgical History Surgical History H/O laparoscopy Hx of dilation and curettage No pertinent past surgical history Family History Family History Father High cholesterol Mother H/O thyroidectomy MTHFR mutation Social History Social History Social History: Years smoked: 5 Smoking status: Never smoker Tobacco type: cigarettes Second hand tobacco smoke exposure: No Additional smoking assessment comments: SMOKED OFF AND ON DURING HS AND COLLEGE ABOUT 2-3 CIGARETTES/DAY Alcohol intake: current Drinks per week: 1 Alcohol use details: WINE OR MIXED DRINK Substance use: current Substance use type: marijuana Last use: 01/11/2021 Living arrangements: with family Occupation/Education: occupation Gender identity (if verbalized by the patient): Female Sexual Orientation (if Verbalized by the Patient): Straight or Heterosexual Spiritual care concerns: No Comments At time of signature, agree with nursing past medical, surgical, social and family history. There is no relevant family history pertinent to the presenting complaint Exam Narrative: GENERAL: Well-appearing, well-nourished, and in no acute distress. HEAD: Normocephalic EYES: PERRLA, conjunctivae clear ENT: Nares clear, turbinates edematous and erythematous, clear discharge. Mucous membranes moist. TM pearly mendoza with dull light reflex bilaterally; no tragal tenderness. Oropharynx erythematous without lesions. Tonsils red and minimally enlarged throat without exudate, no drooling, no hoarseness, no trismus, uvula midline.some post nasal drainage noted. NECK: Supple. No lymphadenopathy CHEST: Clear to auscultation, breath sounds equal. No wheezing, rhonchi, rales, or stridor. No respiratory distress, speaks in full sentences. no cough noted, SAO2 100% on room air HEART: Regular rate and rhythm. No murmur heard. SKIN: Warm, dry, no rash. NEURO: Alert and oriented x3. PSYCH: Normal mood and affect
== END 2022-08-24 11:29 | disposition home or self-care (01) ==
PROVIDERS: Emergency Provider Registered Nurse
DX: J02.0 Streptococcal pharyngitis (principal); Z87.891 Personal history of nicotine dependence; N80.9 Endometriosis, unspecified; F98.8 Other specified behavioral and emotional disorders with onset usually occurring in childhood and adolescence
CPT/HCPCS: 87880; 99213; G0463

== ENCOUNTER 2024-01-15 14:54 | Emergency (ER) | payer SELFPAY ==
[2024-01-15 15:13] VITALS: BP 105/81; PULSE 67; RESP 16; TEMP 36.3; O2SAT 99
--- NOTE | 2024-01-15 15:27 | ED.URI ---
HPI - URI/Sore Throat General Chief Complaint: Upper Respiratory Infection Stated Complaint: Strep Symptoms History of Present Illness HPI Narrative: 33-year-old female presented for complaint of sore throat. Onset yesterday. States daughter tested positive for strep throat 5 days ago and has been taking antibiotics. Patient denies cough, headache, shortness of breath, nausea vomiting diarrhea fevers or chills. No treatment for symptoms. Related Data Allergies Allergy/AdvReac Type Severity Reaction Status Date / Time No Known Allergies Allergy Verified 08/24/22 10:49 Review of Systems Review of Systems: CONSTITUTIONAL: Denies body aches, fever, chills, or sweats. EYES: Denies visual changes, redness, or discharge. ENT: Reports sore throat Denies rhinorrhea, congestion, or otalgia. CARDIOVASCULAR: Denies chest pain, palpitations, or edema. RESPIRATORY: Denies dyspnea. GASTROINTESTINAL: Denies abdominal pain, nausea, vomiting, or diarrhea. SKIN: Denies rash, itching, or wounds. MUSCULOSKELETAL: Denies back pain, joint pain, or myalgia. NEUROLOGIC: Denies headache PMFSH Past Medical History Medical History ADD (attention deficit disorder) without hyperactivity Endometriosis Endometritis Normal vaginal delivery Retained placenta or membranes Surgical History Surgical History H/O laparoscopy Hx of dilation and curettage No pertinent past surgical history Family History Family History Father High cholesterol Mother H/O thyroidectomy MTHFR mutation Social History Social History Social History: Years smoked: 5 Smoking status: Never smoker Tobacco type: cigarettes Second hand tobacco smoke exposure: No Additional smoking assessment comments: SMOKED OFF AND ON DURING HS AND COLLEGE ABOUT 2-3 CIGARETTES/DAY Alcohol intake: current Drinks per week: 1 Alcohol use details: WINE OR MIXED DRINK Substance use: current Substance use type: marijuana Last use: 01/11/2021 Living arrangements: with family Occupation/Education: occupation Gender identity (if verbalized by the patient): Female Sexual Orientation (if Verbalized by the Patient): Straight or Heterosexual Spiritual care concerns: No Exam Narrative: GENERAL: well-appearing, no acute distress. EYES: conjunctivae clear ENT: Mucous membranes moist. TM pearly mendoza with normal light reflex bilaterally; no tragal tenderness. Oropharynx not erythematous without lesions. Tonsils not enlarged and without exudate. No drooling, no hoarseness, no trismus, uvula midline. No tripod positioning, hot potato voice, or soft palate swelling. NECK: Supple. No lymphadenopathy CHEST: Clear to auscultation, breath sounds equal. No respiratory distress, speaks in full sentences. HEART: Regular rate and rhythm. No murmur heard. SKIN: Warm, dry, no rash. NEURO: Alert and oriented x3. Course Course Emergency Course: Patient is aware of diagnosis, understands and agrees to treatment plan. Anticipatory guidance given. Patient agrees to follow-up as directed and is aware of reasons to seek care at the emergency department. Portions of this record may have been created with voice recognition software Level of Care: Express Care Visit Vital Signs Vital signs: Vital Signs Temperature 97.3 F L 01/15/24 15:13 Pulse Rate 67 01/15/24 15:13 Respiratory Rate 16 01/15/24 15:13 Blood Pressure 105/81 01/15/24 15:13 Pulse Oximetry 99 01/15/24 15:13 Temperature 97.3 F L 01/15/24 15:13 Pulse Rate 67 01/15/24 15:13 Respiratory Rate 16 01/15/24 15:13 Blood Pressure 105/81 01/15/24 15:13 Pulse Oximetry 99 01/15/24 15:13 MDM - URI/Sore Throat MDM Narrative Medical decision
== END 2024-01-15 15:30 | disposition home or self-care (01) ==
PROVIDERS: Emergency Provider Nurse Practitioner Family; PCP Family Medicine Sports Medicine
DX: J02.9 Acute pharyngitis, unspecified (principal); N80.9 Endometriosis, unspecified
CPT/HCPCS: 87081; 87880; 99213; G0463

== ENCOUNTER 2024-05-05 15:45 | Emergency (ER) | payer OTHER, SELFPAY ==
--- NOTE | ~2024-05-05 | US_ITS ---
EXAMINATION: US pelvic complete DATE: 05/05/2024 19:14 INDICATION: Left lower quadrant abdominal pain. TECHNIQUE: Multiple transabdominal sonographic images of the pelvis were obtained. COMPARISON: CT abdomen and pelvis 05/05/2024 FINDINGS: The uterus measures 8.7 x 3.0 x 4.7 cm. There is no free fluid in the pelvis. The endometrial complex measures 6 mm in thickness. The right ovary measures 2.6 x 1.6 x 2.1 cm. The left ovary measures 3.2 x 2.3 x 2.4 cm. There is normal vascular flow in the ovaries. IMPRESSION: 1. Normal pelvis. Reviewed, dictated and finalized at location A. IMPRESSION: 1. Normal pelvis.
--- NOTE | ~2024-05-05 | CT_ITS ---
EXAMINATION: CT abdomen pelvis w con DATE: 05/05/2024 18:21 INDICATION: Left lower quadrant abdominal pain. Left back pain. TECHNIQUE: Computed tomography (CT) of the abdomen and pelvis was performed with 100 mL Omnipaque 350 intravenous contrast. Automated exposure control and iterative reconstruction technique were employe d. The dose-length product was 365.74 mGy-cm. COMPARISON: None. FINDINGS: The visualized portions of lung bases demonstrate minimal atelectasis on the right. No pleu ral effusion. The heart is normal. No pericardial effusion. The liver, gallbladder, spleen, pancreas, adrenal glands, and kidneys are normal. There are no dilated loops of bowel. The appendix is normal. There are no pathologically enlarged lymph nodes. There is no free intraperitoneal fluid. There is m ild thoracic and lumbar spondylosis. IMPRESSION: 1. No specific etiology for the patient's symptoms. Reviewed, dictated and finalized at location A.
[2024-05-05 15:49] VITALS: BP 118/69; PULSE 77; RESP 16; TEMP 36.5; O2SAT 100
[2024-05-05 16:57] LABS: BEDSIDEPREGUCG Negative (Negative)
[2024-05-05 17:01] LABS: Basophils Percent Auto 0.2 % (0.2-1.2); Eosinophils Absolute Auto 0.2 K/mm3 (0-0.3); Eosinophils Percent Auto 2.5 % (0-4.4); Hematocrit 42.7 % (37.0-47.0); Hemoglobin 14.4 g/dL (12.0-15.0); Immature Granulocyte Absolute 0.01 K/mm3 (0.00-0.031); Immature Granulocyte Percent A 0.1 % (0-0.5); Lymphocytes Absolute Auto 0.57 K/mm3 (0.9-3.2); Lymphocytes Percent Auto 6.6 % (18.3-44.2); Mean Corpuscular HGB Conc 33.7 g/dl (32-36); Mean Corpuscular Hemoglobin 30.9 pg (26-34); Mean Corpuscular Volume 91.6 fl (80-100); Mean Platelet Volume 11.7 fl (7.4-10.4); Monocytes Absolute Auto 0.4 K/mm3 (0.1-0.6); Monocytes Percent Auto 4.3 % (2.6-8.5); Neutrophils Absolute Auto 7.5 K/mm3 (1.3-6.7); Neutrophils Percent Auto 86.3 % (45.5-73.1); Platelet Count Result 152 k/mm3 (150-375); Red Blood Count 4.66 M/mm3 (4.2-5.4); White Blood Count 8.7 K/mm3 (4.5-10.0)
[2024-05-05 17:02] LABS: Add Urine Microscopic? NO; Appearance Urine Clear (Clear); Bilirubin Urine Negative (Negative); Blood Urine Negative (Negative); Color Urine Yellow (Yellow); Glucose Urine UA Negative (Negative); Ketones Urine 1+ mg/dL (Negative); Leukocyte Esterase Ur Negative LEU/UL (Negative); Nitrate Urine Negative (Negative); Protein Urine Negative (Negative); Specific Grav Ur 1.011 (1.001-1.035); Urobilinogen Urine 0.2 mg/dL (<2.0); pH Urine 7.5 (5.0-9.0)
[2024-05-05 17:59] LABS: Alanine Aminotransferase 13 U/L (6-35); Albumin Level 4.3 g/dL (3.5-5.1); Alkaline Phosphatase 37 U/L (38-126); Anion Gap 7 mmol/L (4-12); Aspartate Amino Transferase 21 U/L (14-36); Bilirubin,Total 1.9 mg/dL (0.2-1.3); Blood Urea Nitrogen 6 mg/dL (7-17); Calcium 9.2 mg/dL (8.4-10.2); Carbon Dioxide 29 mmol/L (22-30); Chloride 101 mmol/L (98-107); Estimated CRCL calculation 111 ml/min; Estimated Glomerular Filt Rate > 60; Glucose 78 mg/dL (65-110); Lipase 32 U/L (23-300); Sodium 137 mmol/L (137-145)
--- NOTE | 2024-05-05 18:23 | ED.GENADULT ---
HPI - General Adult General Chief complaint: Urogenital-Female Stated complaint: left lower back pain Time Seen by Provider: 05/05/24 15:52 Source: patient Mode of arrival: ambulatory Limitations: no limitations History of Present Illness HPI narrative: Patient is a 34-year-old female who presents the ED with report of left-sided abdominal and back pain. patient reports over the last 3 days, she has been having pain throughout her mid back. Denies any injury. Has not taken anything for pain. Today, pain began to radiate around to her left lower abdomen which prompted her to come be seen. Patient denies any other significant associated symptoms. Denies nausea, vomiting, diarrhea, constipation, dysuria, hematuria, fevers, shortness of breath, pleuritic pain, history of kidney stones. Related Data Allergies Allergy/AdvReac Type Severity Reaction Status Date / Time No Known Allergies Allergy Verified 05/05/24 15:48 Review of Systems Review of Systems: All systems reviewed & are unremarkable except as noted in HPI. All systems reviewed & are unremarkable except as noted in HPI and below PMFSH Past Medical History Medical History ADD (attention deficit disorder) without hyperactivity Endometriosis Endometritis Normal vaginal delivery Retained placenta or membranes Surgical History Surgical History H/O laparoscopy Hx of dilation and curettage No pertinent past surgical history Family History Family History Father High cholesterol Mother H/O thyroidectomy MTHFR mutation Social History Social History Social History: Years smoked: 5 Smoking status: Never smoker Tobacco type: cigarettes Second hand tobacco smoke exposure: No Additional smoking assessment comments: SMOKED OFF AND ON DURING HS AND COLLEGE ABOUT 2-3 CIGARETTES/DAY Alcohol intake: current Drinks per week: 1 Alcohol use details: WINE OR MIXED DRINK Substance use: current Substance use type: marijuana Last use: 01/11/2021 Living arrangements: with family Occupation/Education: occupation Gender identity (if verbalized by the patient): Female Sexual Orientation (if Verbalized by the Patient): Straight or Heterosexual Spiritual care concerns: No Exam Narrative: GENERAL: Well appearing, well-nourished, non-toxic, in no acute distress. HEAD: Normocephalic, atraumatic. RESPIRATORY: Airway patent, respirations nonlabored. Clear to auscultation bilaterally, no rales, rhonchi, wheezing. CARDIOVASCULAR: Regular rate and rhythm without murmurs, rubs, or gallops. ABDOMINAL: Soft, Mild tenderness over the suprapubic region and left lower quadrant, nondistended. Normoactive BS. no significant CVA tenderness to percussion. MUSCULOSKELETAL: Moves all extremities. No gross deformities. SKIN: Warm, dry, normal color. NEURO: A&O X3. Speech clear. Cranial nerves II-XII grossly intact. Steady gait. No ataxic movements. PSYCHIATRIC: Appropriate mood and affect. Normal interaction. Course Vital Signs Vital signs: Vital Signs Temperature 97.7 F 05/05/24 15:49 Pulse Rate 77 05/05/24 15:49 Respiratory Rate 16 05/05/24 15:49 Blood Pressure 118/69 05/05/24 15:49 Pulse Oximetry 100 05/05/24 15:49 Temperature 97.7 F 05/05/24 15:49 Pulse Rate 78 05/05/24 18:49 Respiratory Rate 18 05/05/24 18:49 Blood Pressure 112/70 05/05/24 18:49 Pulse Oximetry 100 05/05/24 18:49 Medical Decision Making [place] Narrative Medical decision making narrative: Patient presented to ED with 3 day history of left lower abdominal pain, midback pain. Vital signs are stable upon arrival. Patient is in no acute distress. Did not want anything for pain upon m
[2024-05-05] MEDS: KETOROLAC 30 MG/ML VIAL (*BKC) IV PUSH (18:46)
[2024-05-05 18:49] VITALS: BP 112/70; PULSE 78; RESP 18; O2SAT 100
== END 2024-05-05 19:50 | disposition home or self-care (01) ==
PROVIDERS: Emergency Provider Physician Assistant; PCP Family Medicine Sports Medicine
DX: R10.32 Left lower quadrant pain (principal); M54.6 Pain in thoracic spine; F98.8 Other specified behavioral and emotional disorders with onset usually occurring in childhood and adolescence; Z87.891 Personal history of nicotine dependence; Z79.899 Other long term (current) drug therapy
CPT/HCPCS: 36415; 74177; 76856; 80053; 81003; 81025; 83690; 85025; 99284; J1885; Q9967

== ENCOUNTER 2024-05-25 11:42 | Emergency (ER) | payer OTHER, SELFPAY ==
[2024-05-25] VITALS (18 sets, daily range): BP systolic 76–113; BP diastolic 59–73; PULSE 62–78; RESP 10–24; TEMP 36.4; O2SAT 98–100
--- NOTE | ~2024-05-25 | XR_ITS ---
XR chest 2V Ordering provider: Nicki Wilson MD History: 34 years Female with . chest pain, left side radiating to left shoulder and jaw . Comparison: None. FINDINGS: MEDIASTINUM: The cardiac silhouette is not enlarged. LUNGS: No infiltrates, effusions or pneumothorax. OTHER: No free air under the diaphragm. IMPRESSION: No acute cardiopulmonary pathology. Reviewed, dictated and finalized at location A. COMMUNICATIONS TECHNICIAN
--- NOTE | 2024-05-25 11:44 | ECG_ITS ---
Test Date: 2024-05-25 11:47:45 Measurements Intervals [place] Rate: 74 P: 80 MA: 125 QRS: 59 QRSD: 85 T: 68 QT: 385 QTc: 428 Interpretive Statements SINUS RHYTHM POSSIBLE RIGHT VENTRICULAR CONDUCTION DELAY BORDERLINE ECG No previous ECG available for comparison Electronically Signed On 05-25-2024 12:47:51 SOFTWARE QUALITY MANAGER by Froilan Stratton D.O.
[2024-05-25 12:01] LABS: Basophils Percent Auto 0.5 % (0.2-1.2); Eosinophils Absolute Auto 0.1 K/mm3 (0-0.3); Eosinophils Percent Auto 2.8 % (0-4.4); Hematocrit 40.7 % (37.0-47.0); Hemoglobin 13.8 g/dL (12.0-15.0); Lymphocytes Absolute Auto 0.99 K/mm3 (0.9-3.2); Lymphocytes Percent Auto 22.8 % (18.3-44.2); Mean Corpuscular HGB Conc 33.9 g/dl (32-36); Mean Corpuscular Hemoglobin 31.2 pg (26-34); Mean Corpuscular Volume 91.9 fl (80-100); Mean Platelet Volume 11.5 fl (7.4-10.4); Monocytes Absolute Auto 0.3 K/mm3 (0.1-0.6); Monocytes Percent Auto 7.6 % (2.6-8.5); Neutrophils Absolute Auto 2.9 K/mm3 (1.3-6.7); Neutrophils Percent Auto 66.3 % (45.5-73.1); Platelet Count Result 163 k/mm3 (150-375); Red Blood Count 4.43 M/mm3 (4.2-5.4); Red Cell Distribution Width 12.8 % (11.5-14.5); White Blood Count 4.4 K/mm3 (4.5-10.0)
[2024-05-25 12:13] LABS: Alanine Aminotransferase 14 U/L (6-35); Albumin Level 4.6 g/dL (3.5-5.1); Alkaline Phosphatase 40 U/L (38-126); Anion Gap 10 mmol/L (4-12); Aspartate Amino Transferase 18 U/L (14-36); Bilirubin,Total 1.4 mg/dL (0.2-1.3); Blood Urea Nitrogen 14 mg/dL (7-17); Calcium 9.4 mg/dL (8.4-10.2); Carbon Dioxide 28 mmol/L (22-30); Chloride 102 mmol/L (98-107); Estimated CRCL calculation 110 ml/min; Estimated Glomerular Filt Rate > 60; Glucose 87 mg/dL (65-110); Lipase 279 U/L (23-300); Potassium 3.7 mmol/L (3.4-5.0); Sodium 140 mmol/L (137-145)
[2024-05-25 12:20] LABS: Prothrombin Time 13.4 Seconds (11.1-14.7)
[2024-05-25 12:21] LABS: Partial Thromboplastin Time 33.8 Seconds (22.3-36.8)
[2024-05-25 12:25] LABS: Troponin I < 0.012 ng/mL (0.000-0.034)
--- NOTE | 2024-05-25 13:20 | ED_ITS ---
HPI - Chest Pain General Chief Complaint: Chest Pain Stated Complaint: chest pain Time Seen by Provider: 05/25/24 12:25 Source: patient Mode of arrival: ambulatory Limitations: no limitations History of Present Illness HPI narrative: Patient presents with intermittent chest pain occurring since Thursday. It was dull yesterday and described as a pressure though she also notes that yesterday it was pleuritic and sharp with deep breaths. It is also worse with eating. She will intermittently be short of breath although she thought that might be anxiety. She states it is under her left breast and radiates into her left neck and left shoulder/posterior shoulder but not down the arm or into the jaw. Today it was also towards her axilla. She has been doing with fatigue and body aches over the past several years for which she sees her primary care physician. She underwent a treadmill stress test in 2020 that was normal by report. She tried Tums but this was not helping. She denies any lower extremity edema. No cardiac history and does not follow with a insurance risk surveyor. No respiratory history. Denies any nausea, vomiting, diaphoresis, fever, chills, or cough. She did have strep recently. She has a family history of pulmonary embolism in her mother who she believes it was attributed to a protein deficiency; patient herself was tested and was negative for this. No personal history of hypertension, hyperlipidemia, diabetes mellitus. No family history of a myocardial infarction in a family member less than 65 years old. Patient does not smoke and is not obese. No prior personal history of myocardial infarction, TIA, or CVA. Patient's previous primary care physician was Yany though because they left [facility] she is set to establish with someone new. Related Data Allergies Allergy/AdvReac Type Severity Reaction Status Date / Time No Known Allergies Allergy Verified 05/25/24 11:42 [facility] Past Medical History Medical History ADD (attention deficit disorder) without hyperactivity Endometriosis Endometritis Normal vaginal delivery Retained placenta or membranes Surgical History Surgical History H/O laparoscopy Hx of dilation and curettage No pertinent past surgical history Family History Family History Father High cholesterol Mother H/O thyroidectomy MTHFR mutation Pulmonary embolism Grandparent Diabetes mellitus Grandparent Diabetes mellitus Social History Social History Social History: Years smoked: 5 Smoking status: Never smoker Tobacco type: cigarettes Second hand tobacco smoke exposure: No Additional smoking assessment comments: SMOKED OFF AND ON DURING HS AND COLLEGE ABOUT 2-3 CIGARETTES/DAY Alcohol intake: current Drinks per week: 1 Alcohol use details: WINE OR MIXED DRINK Substance use: current Substance use type: marijuana Last use: 01/11/2021 Living arrangements: with family Occupation/Education: occupation Gender identity (if verbalized by the patient): Female Sexual Orientation (if Verbalized by the Patient): Straight or Heterosexual Spiritual care concerns: No Exam Narrative: GENERAL: Well-appearing, well-nourished, and in no acute distress. HEAD: Normocephalic, atraumatic. EYES: Non injected, non icteric ENT: Nares clear, no rhinorrhea or epistaxis. NECK: Supple. CHEST: Speaking in full sentences. No respiratory distress. Lungs clear to auscultation bilaterally without wheezes crackles or appreciable consolidation. HEART: Regular rate and rhythm. ABDOMEN: Soft, nondistended. EXTREMITIES: Normal range of motion. No bilateral lower extremity edema. SKIN: Warm, dry, no rash; particularly no lesion across the left chest under breast, around breast or in to left shoulder axilla. NEURO: No focal deficits. Alert and oriented x3. PSYCH: Normal mood and affect. Course Vital Signs Vital signs: Vital Signs Pulse Oximetry 100 05/25/24 12:31 Oxygen Delivery Room Air 05/25/24 12:31 Temperature 97.6 F 05/25/24 13:49 Pulse Rate 64 05/25/24 15:46 Respiratory Rate 12 05/25/24 15:45 Blood Pressure 106/61 05/25/24 15:45 Pulse Oximetry 98 05/25/24 15:45 Oxygen Delivery Room Air 05/25/24 12:31 MDM - Chest Pain MDM Narrative Medical decision making narrative: Patient presents with left-sided chest pain occurring since Thursday. It has been intermittent. It primarily is under her left breast and into her left shoulder and axilla and posterior shoulder. In the ED she is afebrile with vital signs notable for mild tachypnea initially however resolved on reassessment. HEART SCORE History 2 highly suspicious 1 moderately suspicious 0 slightly suspicious History score [address] depression/elevation not due to LBBB, LVH, or digoxin [address] depression but LBBB, LVH, nonspecific repolarization changes 0 normal ECG score 0 Age 2 >/= 65 1 45-64 0 <45 Age score 0 Risk factors (HTN, hypercholesterolemia, DM, obesity with BMI >30, current smoker or cessation </=3mo), positive fam hx with parent or sibling with CVD before age 65, atherosclerotic disease (prior SC, PCI/CABG, CVA/TIA, or peripheral arterial disease) 2 >/= 3 risk factors or history of atherosclerotic dz 1 - 1-2 risk factors 0 no known risk factors Risk factor score 0 Initial Troponin 2 >3 times normal limit 1 1-3 times normal limit 0 less than or equal to normal limit Troponin score 0 Total HEART Score 0. Modified [place] Criteria: (won't be able to get Anti-Streptolysin O titer immediately; will follow up). However otherwise no history and low risk population with the only index of a positive throat culture recently. For this reason, not highly suggested. Patient has a family history of pulmonary embolism and describes pleuritic chest pain. For this reason, will proceed with obtaining D-dimer. This is normal. Will not proceed with CT imaging. Repeat troponin negative. Stable for discharge with outpatient follow-up. Differential Diagnosis Differential diagnosis: Likely pneumothorax, unstable angina pectoris, atypical chest pain, st elevation myocardial infarction, costochondritis, chest pain, biliary colic and other (zoster/shingles; rheumatic fever (given recent strep); PE; pneumonia; GERD; musculoskeletal) Lab Data Attestation: I reviewed the patient's lab results. Lab results narrative: Mild leukopenia 05/25/24 11:55 05/25/24 11:55 Labs: Lab Results 05/25/24 05/25/24 Range/Units 11:55 14:59 WBC 4.4 L (4.5-10.0) K/mm3 RBC 4.43 (4.2-5.4) M/mm3 Hgb 13.8 (12.0-15.0) g/dL Hct 40.7 (37.0-47.0) % MCV 91.9 (80-100) fl MCH 31.2 (26-34) pg MCHC 33.9 (32-36) g/dl RDW 12.8 (11.5-14.5) % Plt Count 163 (150-375) k/mm3 MPV 11.5 H (7.4-10.4) fl Immature Gran % (Auto) 0.0 (0-0.5) % Neut % (Auto) 66.3 (45.5-73.1) % Lymph % (Auto) 22.8 (18.3-44.2) % Petroleum % (Auto) 7.6 (2.6-8.5) % Eos % (Auto) 2.8 (0-4.4) % Baso % (Auto) 0.5 (0.2-1.2) % Lymph # (Auto) 0.99 (0.9-3.2) K/mm3 Petroleum # (Auto) 0.3 (0.1-0.6) K/mm3 Eos # (Auto) 0.1 (0-0.3) K/mm3 Baso # (Auto) 0.0 (0.0-0.1) K/mm3 Abs Immat Gran (auto) 0.00 (0.00-0.031) K/mm3 Absolute Neuts (auto) 2.9 (1.3-6.7) K/mm3 Absolute Nucleated RBC 0.000 (0.0-0.012) K/mm3 Nucleated RBC % 0.0 (0.0-0.2) % ESR 13 (0-20) mm/hr PT 13.4 (11.1-14.7) Seconds INR 1.0 APTT 33.8 (22.3-36.8) Seconds D-Dimer 0.26 (<0.48) ug/mL Sodium 140 (137-145) mmol/L Potassium 3.7 (3.4-5.0) mmol/L Chloride 102 (98-107) mmol/L Carbon Dioxide 28 (22-30) mmol/L Anion Gap 10 (4-12) mmol/L BUN 14 D (7-17) mg/dL Creatinine 0.70 (0.7-1.0) mg/dL Estim Creat Clear Calc 110 ml/min Estimated GFR > 60 (59 - ) Glucose 87 (65-110) mg/dL Calcium 9.4 (8.4-10.2) mg/dL Total Bilirubin 1.4 H (0.2-1.3) mg/dL AST 18 (14-36) U/L ALT 14 (6-35) U/L Alkaline Phosphatase 40 (38-126) U/L Troponin I < 0.012 < 0.012 (0.000-0.034) ng/mL C-Reactive Protein < 0.5 (<1.0) mg/dL NT-Pro-B Natriuret Pep < 20 (19.9-100) pg/mL Total Protein 8.0 (6.3-8.2) g/dL Albumin 4.6 (3.5-5.1) g/dL Lipase 279 (23-300) U/L Anti-Streptolysin Scrn Pending Imaging Data Radiologist's impression: Impressions Chest X-Ray 05/25/24 12:51 IMPRESSION: No acute cardiopulmonary pathology. ECG Data EKG #1: Attestation: I personally reviewed and interpreted this ECG as follows: ECG completion date: 05/25/24 ECG completion time: 11:47 Interpretation: Normal sinus rhythm at a rate of 74 beats per minute. HI interval 125. QRS 85. QT/QTC 385/412. Good R-wave progression across the precordial leads. No T- wave inversions. Normal axis. Possible right ventricular conduction delay as there is an RSR in V1 and V2. EKG #2: Attestation: I personally reviewed and interpreted this ECG as follows: ECG completion date: 05/25/24 ECG completion time: 15:29 Interpretation: Normal sinus rhythm at a rate of 61 beats per minute. HI interval 139. QRS 83. QT/QTC 416/418. Good R-wave progression across the precordial leads. No T- wave inversions. Possible right ventricular conduction delay given the RSR complexes in V1 and V2. Normal axis Discharge Plan Discharge Clinical Impression: Left-sided chest pain, Leukopenia Patient Disposition: Home, Self-Care Condition: Stable Instructions: Antibiotic Form, Chest Pain (DC) Additional Instructions: Your workup has not determined The exact etiology of your symptoms; however you are otherwise low risk. Follow-up with your new primary care physician. If you are having difficulty establishing with someone after Dr Slade's departure, the name of another doctor is listed below. Acetaminophen/Tylenol is safe to take with NSAIDs for pain. Return to the emergency department with any new or worsening symptoms. Prescriptions: New ibuprofen 600 mg tablet 600 mg PO TID PRN (Reason: pain) Qty: 30 0RF acetaminophen 500 mg capsule 1,000 mg PO Q6H PRN (Reason: pain) Qty: 30 0RF No Action amoxicillin 875 mg tablet 875 mg PO Q12H Qty: 20 0RF Rx Instructions: take all of prescription Vyvanse 70 mg capsule 70 mg PO DAILY Qty: 30 0RF Follow-up/Referrals: Ananda,Mable Bagley MD [Primary Care Provider] - Scot Grjialva MD [Physician] - (Family practice) Stand Alone Forms: Work/School Release IP Time of Disposition: 15:50
[2024-05-25 14:01] LABS: D Dimer 0.26 ug/mL (<0.48)
[2024-05-25 14:13] LABS: CRP < 0.5 mg/dL (<1.0)
[2024-05-25 14:21] LABS: NT Pro B Type Natriuretic Pept < 20 pg/mL (19.9-100)
[2024-05-25] MEDS: ACETAMINOPHEN 500 MG TABLET 1000 MG PO (14:29)
[2024-05-25] MEDS: ASPIRIN 81 MG CHEWABLE TABLET 324 MG PO (14:29)
[2024-05-25] MEDS: FAMOTIDINE 20 MG TABLET PO (14:30)
[2024-05-25 15:08] LABS: Erythrocyte Sedimentation Rate 13 mm/hr (0-20)
--- NOTE | 2024-05-25 15:16 | ECG_ITS ---
Test Date: 2024-05-25 15:29:33 Measurements Intervals [place] Rate: 61 P: 78 IA: 139 QRS: 68 QRSD: 83 T: 74 QT: 416 QTc: 420 Interpretive Statements SINUS RHYTHM POSSIBLE RIGHT VENTRICULAR CONDUCTION DELAY BORDERLINE ECG Compared to ECG 05/25/2024 11:47:45 No significant changes Electronically Signed On 05-25-2024 15:34:03 [employer] by Froilan Stratton D.O.
[2024-05-25 15:32] LABS: Troponin I < 0.012 ng/mL (0.000-0.034)
[2024-05-27 02:24] LABS: Anti Streptolysin O Screen 420 IU/mL (<200)
== END 2024-05-25 16:20 | disposition home or self-care (01) ==
PROVIDERS: Emergency Medicine; Emergency Provider Student in an Organized Health Care Education/Training Program; PCP Family Medicine Sports Medicine
DX: R07.9 Chest pain, unspecified (principal); D72.819 Decreased white blood cell count, unspecified
CPT/HCPCS: 36415; 71046; 80053; 83690; 83880; 84484; 85025; 85380; 85610; 85652; 85730; 86060; 86140; 93005; 99284; A9270